=== PATIENT | male | born 1990 | race Caucasian/White ===

== ENCOUNTER 2016-04-30 10:40 | Emergency (ER) | payer BC, MEDICAID ==
[2016-04-30 10:45] VITALS: BP 109/74
--- NOTE | 2016-04-30 10:48 | ER Document Report ---
ED Medical Screen (RME) - General Stated Complaint: BACK PAIN Time seen by provider: 10:46 Notes: Patient states he rolled down the stairs several days ago while playing with his son. Complains of continued back pain to right side. Previous history of back problems in the past. Patient complains of congestion, and one also like to be seen for that today. No fever. I have greeted and performed a rapid initial assessment of this patient. A comprehensive ED assessment and evaluation of the patient, analysis of test results and completion of the medical decision making process will be conducted by additional ED providers. TRAVEL OUTSIDE OF THE [place] IN LAST 30 DAYS: No - Related Data Allergies/Adverse Reactions: No Known Allergies Allergy (Verified 04/30/16 10:46) Past Medical History Skin Medical History: Reports Hx MRSA - unsure if he was positive for MRSA in the past Past Surgical History: Reports: Hx Tonsillectomy - Immunizations Immunizations up to date: No Hx Diphtheria, Pertussis, Tetanus Vaccination: Yes Physical Exam - Vital signs Vitals: Temp Pulse Resp BP Pulse Ox 97.9 F 95 16 109/74 100 04/30/16 10:44 04/30/16 10:44 04/30/16 10:44 04/30/16 10:44 04/30/16 10:44 - General General appearance: Appears well, Alert In distress: None Notes: Patient ambulates to triage without difficulty. Course - Vital Signs Vital signs: Temp Pulse Resp BP Pulse Ox 97.9 F 95 16 109/74 100 04/30/16 10:44 04/30/16 10:44 04/30/16 10:44 04/30/16 10:44 04/30/16 10:44
[2016-04-30] MEDS ORDERED: LIDOCAINE 5% (700 MG) TRANSDERMAL ADH..PATCH TP ONE (11:02)
--- NOTE | 2016-04-30 11:02 | ER Document Report ---
ED General - General Chief Complaint: Back Pain Stated Complaint: BACK PAIN TRAVEL OUTSIDE OF THE [place] IN LAST 30 DAYS: No - HPI Patient complains to provider of: back pain congestion Notes: Patient has a history smoking continues to smoke congestion for a week back pain for greater than a week after falling discussed with stairs. Patient states pain is no better coming to the ER further evaluation. Patient denies any numbness tingling difficulty ambulating denies bowel or bladder incontinence. Denies fevers chills - Related Data Allergies/Adverse Reactions: No Known Allergies Allergy (Verified 04/30/16 10:46) Past Medical History - Social History Smoking Status: Never Smoker Chew tobacco use (# tins/day): No Frequency of alcohol use: None Drug Abuse: None Family History: Reviewed & Not Pertinent Patient has suicidal ideation: No Patient has homicidal ideation: No Renal/ Medical History: Denies: Hx Peritoneal Dialysis Skin Medical History: Reports Hx MRSA - unsure if he was positive for MRSA in the past Past Surgical History: Reports: Hx Tonsillectomy - Immunizations Immunizations up to date: No Hx Diphtheria, Pertussis, Tetanus Vaccination: Yes Review of Systems - Review of Systems Constitutional: No symptoms reported EENT: No symptoms reported Cardiovascular: No symptoms reported Respiratory: Other - Cough congestion Gastrointestinal: No symptoms reported Genitourinary: No symptoms reported Male Genitourinary: No symptoms reported Musculoskeletal: Back pain Skin: No symptoms reported Hematologic/Lymphatic: No symptoms reported Neurological/Psychological: No symptoms reported -: Yes All other systems reviewed and negative Physical Exam - Vital signs Vitals: Temp Pulse Resp BP Pulse Ox 97.9 F 95 16 109/74 100 04/30/16 10:44 04/30/16 10:44 04/30/16 10:44 04/30/16 10:44 04/30/16 10:44 Interpretation: Normal - General General appearance: Appears well, Alert - HEENT Head: Normocephalic, Atraumatic Eyes: Normal Pupils: PERRL - Respiratory Respiratory status: No respiratory distress Chest status: Nontender Breath sounds: Normal Chest palpation: Normal - Cardiovascular Rhythm: Regular Heart sounds: Normal auscultation Murmur: No - Abdominal Inspection: Normal Distension: No distension Bowel sounds: Normal Tenderness: Nontender Organomegaly: No organomegaly - Back Back: Normal, Tender - Patient with right-sided back pain paraspinal no signs of bruises no erythema - Extremities General upper extremity: Normal inspection, Nontender, Normal color, Normal ROM , Normal temperature General lower extremity: Normal inspection, Nontender, Normal color, Normal ROM , Normal temperature, Normal weight bearing. No: Benjamin's sign - Neurological Neuro grossly intact: Yes Cognition: Normal Orientation: AAOx4 Wanda Coma Scale Eye Opening: Spontaneous [place]anda Coma Scale Verbal: Oriented [place] Coma Scale Motor: Obeys Commands [place] Coma Scale Total: 15 Speech: Normal Motor strength normal: LUE, RUE, LLE, RLE Sensory: Normal - Psychological Associated symptoms: Normal affect, Normal mood - Skin Skin Temperature: Warm Skin Moisture: Dry Skin Color: Normal Course - Re-evaluation Re-evalutation: 04/30/16 15:31 The patient presents with low back pain without signs of spinal cord compression , cauda equina syndrome, infection, aneurysm, or other serious etiology. The patient is neurologically intact. Given the extremely low risk of these diagnoses further testing and evaluation for these possibilities does not appear to be indicated at this time. The patient has been instructed to return if the symptoms worsen or change in any way. .. - Vital Signs Vital signs: Temp Pulse Resp BP Pulse Ox 97.9 F 95 16 109/74 100 04/30/16 10:44 04/30/16 10:44 04/30/16 10:44 04/30/16 10:44 04/30/16 10:44 Discharge - Discharge Clinical Impression: congestion Back pain Qualifiers: Back pain location: low back pain Chronicity: unspecified Back pain laterality : right Sciatica presence: without sciatica Qualified Code(s): M54.5 - Low back pain Condition: Good Disposition: HOME, SELF-CARE Instructions: Ice Packs ([facility]), Low Back Pain ([facility]), Viral Syndrome ([facility]) Additional Instructions: Take medication as prescribed. If you received good pain relief with Lidoderm patch and made ask her pharmacist about [id number] lidocaine gel for patches Please stop smoking as that this will worsen your congestion. Drink plenty of water to stay hydrated Prescriptions: Ketorolac Tromethamine [Toradol 10 mg Tablet] 10 mg PO Q6HP PRN #20 tablet PRN Reason: Guaifenesin [Mucinex] 1,200 mg PO BID #30 tbmp.12hr Forms: Smoking Cessation Education, Return to Work Referrals: MAYRA NAVAS MD [ACTIVE STAFF] - Follow up as needed MELANIA PASCUAL MD [NO LOCAL MD] - Follow up as needed
== END 2016-04-30 11:23 | disposition home or self-care (01) ==
LOC: ER 10:40
DX: M54.5 Low back pain (principal); R09.81 Nasal congestion; M54.9 Dorsalgia, unspecified; W19.XXXA Unspecified fall, initial encounter
CPT/HCPCS: 99283

== ENCOUNTER 2016-05-16 17:45 | Emergency (ER) | payer BC ==
--- NOTE | 2016-05-16 17:59 | ER Document Report ---
ED Medical Screen (RME) - General Stated Complaint: FLU LIKE SYPMTOMS Notes: Patient admits to emesis, diarrhea as well as bilateral flank pain that started last evening. 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 Admits to decreased urine output. Denies any fevers. I have greeted and performed a rapid initial assessment of this patient. A comprehensive ED assessment and evaluation of the patient, analysis of test results and completion of the medical decision making process will be conducted by additional ED providers. TRAVEL OUTSIDE OF THE [place] IN LAST 30 DAYS: No - Related Data Allergies/Adverse Reactions: No Known Allergies Allergy (Verified 05/16/16 17:57) Past Medical History Renal/ Medical History: Denies: Hx Peritoneal Dialysis Skin Medical History: Reports Hx MRSA - unsure if he was positive for MRSA in the past Past Surgical History: Reports: Hx Tonsillectomy - Immunizations Immunizations up to date: No Hx Diphtheria, Pertussis, Tetanus Vaccination: Yes
[2016-05-16] MEDS ORDERED: ONDANSETRON 4 MG TAB.RAPDIS PO ONE (18:00)
[2016-05-16 18:56] LABS: ABSOLUTE LYMPHOCYTES (AUTO) 1.6 10^3/uL (0.5-4.7); ABSOLUTE MONOCYTES (AUTO) 0.6 10^3/uL (0.1-1.4); BASOPHILS % (AUTO) 0.4 % (0-2); EOSINOPHILS % (AUTO) 0.2 % (0-6); HEMATOCRIT 39.5 % (37.9-51.0); HEMOGLOBIN 13.4 g/dL (13.5-17.0); HGB HCT DIFFERENCE 0.7; LYMPHOCYTES % (AUTO) 15.9 % (13-45); MEAN CORPUSCULAR HEMOGLOBIN 29.3 pg (27.0-33.4); MEAN CORPUSCULAR HGB CONC 33.9 g/dL (32.0-36.0); MEAN CORPUSCULAR VOLUME 87 fl (80-97); MONOCYTES % (AUTO) 5.9 % (3-13); RED BLOOD COUNT 4.57 10^6/uL (4.35-5.55); RED CELL DISTRIBUTION WIDTH 13.8 % (11.5-14.0); SEGMENTED NEUTROPHILS % (AUTO) 77.6 % (42-78); WHITE BLOOD COUNT 10.3 10^3/uL (4.0-10.5)
[2016-05-16] MEDS ORDERED: NORMAL SALINE 1000 ML 2,000 ML IV ONE ×2 (19:10→20:55)
--- NOTE | 2016-05-16 19:10 | ER Document Report ---
ED General - General Chief Complaint: Flank Pain Stated Complaint: FLU LIKE SYPMTOMS Mode of Arrival: Ambulatory Information source: Patient TRAVEL OUTSIDE OF THE [place] IN LAST 30 DAYS: No - HPI Onset: Yesterday - PM Onset/Duration: Gradual Quality of pain: Achy Severity: Moderate Associated symptoms: Chills, Diarrhea, Fever, Nausea, Vomiting, Weakness Exacerbated by: Movement Relieved by: Denies Similar symptoms previously: Yes Recently seen / treated by doctor: No - Related Data Allergies/Adverse Reactions: No Known Allergies Allergy (Verified 05/16/16 17:57) Past Medical History - General Information source: Patient, Parent - Social History Smoking Status: Unknown if Ever Smoked Chew tobacco use (# tins/day): No Frequency of alcohol use: None Drug Abuse: None Lives with: Parents Family History: Reviewed & Not Pertinent Patient has suicidal ideation: No Patient has homicidal ideation: No - Past Medical History Cardiac Medical History: Reports: None Pulmonary Medical History: Reports: None EENT Medical History: Reports: None Neurological Medical History: Reports: None Endocrine Medical History: Reports: None Renal/ Medical History: Reports: Other - RENAL FAILURE DURING OVERDOSE ESCAPADE, ? RESOLVED. Denies: Hx Peritoneal Dialysis Malignancy Medical History: Reports None GI Medical History: Reports: None Musculoskeltal Medical History: Reports None Skin Medical History: Reports Hx MRSA - unsure if he was positive for MRSA in the past Psychiatric Medical History: Reports: None Past Surgical History: Reports: Hx Tonsillectomy - Immunizations Immunizations up to date: No Hx Diphtheria, Pertussis, Tetanus Vaccination: Yes Review of Systems - Review of Systems Constitutional: Chills, Fever, Weakness EENT: No symptoms reported Cardiovascular: No symptoms reported Respiratory: No symptoms reported Gastrointestinal: See HPI Genitourinary: Dysuria, Other - DECREASED UOP Musculoskeletal: Back pain - LOW BACK & FLANKS, BILAT. Skin: No symptoms reported Neurological/Psychological: No symptoms reported Physical Exam - Vital signs Vitals: Temp Pulse Resp BP Pulse Ox 98.4 F 100 22 H 134/74 H 98 05/16/16 17:59 05/16/16 17:59 05/16/16 17:59 05/16/16 17:59 05/16/16 17:59 Interpretation: Tachycardic, Tachypneic. No: Hypotensive, Febrile - General General appearance: Appears well, Alert In distress: None - HEENT Head: Normocephalic Eyes: Normal Conjunctiva: Normal. No: Icteric Ears: Normal Nasal: Normal Mouth/Lips: Normal Mucous membranes: Dry Pharynx: Normal Neck: Normal, Supple - Respiratory Respiratory status: No respiratory distress Breath sounds: Normal - Cardiovascular Rhythm: Regular Heart sounds: Normal auscultation Murmur: No - Abdominal Inspection: Normal Distension: No distension Bowel sounds: Hypoactive Tenderness: Tender - MILD, GENERALIZED - Back Back: Normal, Tender - LOWER PARASPINOUS & FLANKS, CVA tenderness - BILAT. - Extremities General upper extremity: Normal inspection General lower extremity: Normal inspection - Neurological Neuro grossly intact: Yes Cognition: Normal Orientation: AAOx4 - Psychological Associated symptoms: Normal affect, Normal mood - Skin Skin Temperature: Warm Skin Moisture: Dry Skin Color: Normal Skin Turgor: Loose Course - Re-evaluation Re-evalutation: 05/16/16 22:30 Patient appears much more comfortable. He does admit, somewhat reluctantly, that he's feeling better. He is still complaining of pain. He is mobile and changes positions on the stretcher with minimal apparent pain. Oral mucosa is moist. Remainder of exam is unchanged. Results of laboratory studies were reviewed in detail with patient and with parent. He is stable for discharge to home and outpatient follow-up when necessary. - Vital Signs Vital signs: Temp Pulse Resp BP Pulse Ox 98 F 75 16 99/56 L 97 05/16/16 21:52 05/16/16 21:52 05/16/16 21:52 05/16/16 21:52 05/16/16 21:52 - Laboratory Result Diagrams: 05/16/16 18:46 05/16/16 18:46 Laboratory results interpreted by me: 05/16/16 05/16/16 05/16/16 18:46 18:46 20:37 Hgb 13.4 L Sodium 147.0 H Calcium 10.8 H Albumin 5.2 H Urine Protein 100 H Urine Ketones 20 H Urine Bilirubin MODERATE H Urine Ascorbic Acid 20 H Discharge - Discharge Clinical Impression: Viral illness, Dehydration Disposition: HOME, SELF-CARE Instructions: Viral Syndrome ([facility]), Acetaminophen, Dehydration ([facility]), Intravenous (IV) Fluids ([facility]), Oral Narcotic Medication ([facility]), Antinausea Medication ([facility]) Additional Instructions: REST, DRINK PLENTY OF FLUIDS. YOU SHOULD DRINK AT LEAST ONE GALLON OF WATER DURING EVERY 24-HOUR DAY UNTIL YOU HAVE TOTALLY RECOVERED. YOU MAY TAKE ZOFRAN FOR NAUSEA CONTROL IF NEEDED. YOU MAY TAKE TYLENOL FOR PAIN CONTROL, OR NORCO IF NEEDED FOR MORE SEVERE PAIN. FOLLOW UP WITH YOUR PRIMARY CARE PROVIDER OR RETURN TO E.R. IF YOU BEGIN GETTING WORSE, ANY TIME. Referrals: SLOANE RICARDO, [facility] [Primary Care Provider] - Follow up as needed
[2016-05-16 19:11] LABS: ALANINE AMINOTRANSFERASE 27 U/L (21-72); ALBUMIN 5.2 g/dL (3.5-5.0); ALKALINE PHOSPHATASE 47 U/L (38-126); ANION GAP 16 (5-19); ASPARTATE AMINO TRANSFERASE 22 U/L (17-59); BILIRUBIN,TOTAL 0.7 mg/dL (0.2-1.3); BLOOD UREA NITROGEN 15 mg/dL (7-20); CALCIUM 10.8 mg/dL (8.4-10.2); CARBON DIOXIDE 27 mmol/L (22-30); CHLORIDE 104 mmol/L (98-107); CREATININE RESULT 0.73 mg/dL (0.52-1.25); GLUCOSE 103 mg/dL (75-110); POTASSIUM 3.9 mmol/L (3.6-5.0); TOTAL PROTEIN 8.1 g/dL (6.3-8.2)
[2016-05-16] MEDS ORDERED: KETOROLAC TROMETHAMINE INJ/PF 30 MG/1 ML SDV IV ONE (19:15)
[2016-05-16] MEDS ORDERED: HYDROMORPHONE HCL INJ/PF 2 MG/ML AMPULE IV ONE ×2 (20:55→22:19)
[2016-05-16 21:31] LABS: APPEARANCE,URINE SLIGHTLY-CLOUDY; BILIRUBIN,URINE MODERATE (NEGATIVE); GLUCOSE, URINE NEGATIVE (NEGATIVE); KETONES,URINE 20 mg/dL (NEGATIVE); LEUKOCYTE ESTERASE,URINE NEGATIVE (NEGATIVE); NITRITE,URINE NEGATIVE (NEGATIVE); PROTEIN,URINE 100 mg/dL (NEGATIVE); URINE SPECIFIC GRAVITY 1.041; UROBILINOGEN,URINE NEGATIVE mg/dL (<2.0)
[2016-05-16] MEDS ORDERED: HYDROCODONE/ACETAMINOPHEN 5-325 MG 6 TAB/DSPK PO PRN (22:29)
[2016-05-16] MEDS ORDERED: ONDANSETRON ODT 4 MG TAB (6 TAB/DSPK) PO PRN (22:29)
[2016-05-17 00:11] VITALS: BP 105/52
== END 2016-05-16 23:43 | disposition home or self-care (01) ==
LOC: ER 17:45
DX: B34.9 Viral infection, unspecified (principal); E86.0 Dehydration; R50.9 Fever, unspecified; R19.7 Diarrhea, unspecified; R11.2 Nausea with vomiting, unspecified; R53.1 Weakness; R30.0 Dysuria; R00.0 Tachycardia, unspecified; R06.82 Tachypnea, not elsewhere classified; R10.817 Generalized abdominal tenderness
CPT/HCPCS: 96376; 99283; 96361; 51701; 96374; 96375; 36415; 82550; 85025; 80053; 81001; S0119; J1885; J1170; J7030

== ENCOUNTER 2016-06-14 13:19 | Emergency (ER) | payer BC, MEDICAID ==
--- NOTE | 2016-06-14 13:55 | ER Document Report ---
ED Medical Screen (RME) - General Chief Complaint: Flank Pain Stated Complaint: FLANK PAIN, LOW BACK PAIN Notes: This 25-year-old male patient comes emergency room complaining of bilateral kidney pain for 2 weeks. He has had this problems off and on for 3 years. He reports he was told he was close to going on dialysis when he was here for multiple drug overdose a few years ago. He states he has been here several times" they say it's dehydration". He also reports they always give him fluids and Toradol. He states that Toradol does not help and he does not want to receive that. He is also reporting that he is now having pain across his lower abdomen when he urinates and his urine is clear. Brief exam shows tenderness in the lower lumbar back muscles on palpation. He was seen here 1 month ago with similar complaints and similar findings. I have greeted and performed a rapid initial assessment of this patient. A comprehensive ED assessment and evaluation of the patient, analysis of test results and completion of the medical decision making process will be conducted by additional ED providers. TRAVEL OUTSIDE OF THE [place] IN LAST 30 DAYS: No - Related Data Allergies/Adverse Reactions: acetaminophen [From Tylenol-Codeine #3] Allergy (Verified 06/14/16 13:30) Hives codeine [From Tylenol-Codeine #3] Allergy (Verified 06/14/16 13:30) Hives tramadol Adverse Reaction (Verified 06/14/16 13:30) Vomiting Past Medical History Renal/ Medical History: Denies: Hx Peritoneal Dialysis Skin Medical History: Reports Hx MRSA - unsure if he was positive for MRSA in the past Past Surgical History: Reports: Hx Tonsillectomy - Immunizations Immunizations up to date: No Hx Diphtheria, Pertussis, Tetanus Vaccination: Yes Physical Exam - Vital signs Vitals: Temp Pulse Resp BP Pulse Ox 98.5 F 108 H 16 133/77 H 100 06/14/16 13:30 06/14/16 13:30 06/14/16 13:30 06/14/16 13:30 06/14/16 13:30 Course - Vital Signs Vital signs: Temp Pulse Resp BP Pulse Ox 98.5 F 108 H 16 133/77 H 100 06/14/16 13:30 06/14/16 13:30 06/14/16 13:30 06/14/16 13:30 06/14/16 13:30
[2016-06-14 14:17] LABS: ABSOLUTE EOSINOPHILS # (AUTO) 0.2 10^3/uL (0.0-0.6); ABSOLUTE LYMPHOCYTES (AUTO) 1.6 10^3/uL (0.5-4.7); ABSOLUTE MONOCYTES (AUTO) 0.5 10^3/uL (0.1-1.4); ABSOLUTE NEUT (AUTO) 6.1 10^3/uL (1.7-8.2); APPEARANCE,URINE CLEAR; BASOPHILS % (AUTO) 0.5 % (0-2); BILIRUBIN,URINE NEGATIVE (NEGATIVE); GLUCOSE, URINE NEGATIVE (NEGATIVE); HEMATOCRIT 39.1 % (37.9-51.0); HEMOGLOBIN 13.6 g/dL (13.5-17.0); HGB HCT DIFFERENCE 1.7; KETONES,URINE NEGATIVE (NEGATIVE); LEUKOCYTE ESTERASE,URINE NEGATIVE (NEGATIVE); LYMPHOCYTES % (AUTO) 19.4 % (13-45); MEAN CORPUSCULAR HGB CONC 34.8 g/dL (32.0-36.0); MEAN CORPUSCULAR VOLUME 86 fl (80-97); MONOCYTES % (AUTO) 6.2 % (3-13); NITRITE,URINE NEGATIVE (NEGATIVE); PROTEIN,URINE NEGATIVE (NEGATIVE); RED BLOOD COUNT 4.53 10^6/uL (4.35-5.55); RED CELL DISTRIBUTION WIDTH 14.5 % (11.5-14.0); SEGMENTED NEUTROPHILS % (AUTO) 71.9 % (42-78); URINE SPECIFIC GRAVITY 1.002; UROBILINOGEN,URINE NEGATIVE mg/dL (<2.0); WHITE BLOOD COUNT 8.5 10^3/uL (4.0-10.5)
[2016-06-14 14:37] LABS: URINE BARBITURATES SCREEN NEGATIVE; URINE METHADONE SCREEN NEGATIVE; URINE OPIATES LOW UNCONFIRMED POSITIVE; URINE PHENCYCLIDINE SCREEN NEGATIVE
[2016-06-14 14:41] LABS: ALANINE AMINOTRANSFERASE 24 U/L (21-72); ALBUMIN 5.1 g/dL (3.5-5.0); ALKALINE PHOSPHATASE 44 U/L (38-126); ANION GAP 15 (5-19); ASPARTATE AMINO TRANSFERASE 24 U/L (17-59); BILIRUBIN,DIRECT 0.3 mg/dL (0.0-0.4); BILIRUBIN,TOTAL 0.6 mg/dL (0.2-1.3); BLOOD UREA NITROGEN 16 mg/dL (7-20); CALCIUM 10.7 mg/dL (8.4-10.2); CARBON DIOXIDE 27 mmol/L (22-30); CHLORIDE 103 mmol/L (98-107); CREATININE RESULT 0.67 mg/dL (0.52-1.25); GLUCOSE 94 mg/dL (75-110); POTASSIUM 4.6 mmol/L (3.6-5.0); SODIUM 144.8 mmol/L (137-145); TOTAL PROTEIN 7.8 g/dL (6.3-8.2)
--- NOTE | 2016-06-14 17:01 | ER Document Report ---
ED GI/ - General Chief Complaint: Flank Pain Stated Complaint: FLANK PAIN, LOW BACK PAIN Time seen by provider: 16:55 Mode of Arrival: Ambulatory Information source: Patient Notes: 25-year-old male presents to ED for severe pain in bilateral flank. For 2 weeks. He states is actually been on and off for 4-5 years. He states he was told at one time that he was close to gone on dialysis because he was here for multiple drug overdoses a few years ago. He states he has been here several times in the continually telling him he is dehydrated and he knows he is not dehydrated. He states he also has pain when he urinates across the stomach. He states he's had this pain multiple times in the past also TRAVEL OUTSIDE OF THE [place] IN LAST 30 DAYS: No - HPI Patient complains to provider of: Flank pain Onset: Other - 4-5 years worse the last 2 days Timing/Duration: Intermittent Quality of pain: Sharp Severity at maximum: Severe Severity in ED: Moderate Pain Level: 3 Location: Left flank, Right flank Associated symptoms: denies: Chills, Fever, Hematuria, Nausea, Urinary hesitancy , Urinary frequency, Urinary retention, Urinary urgency Exacerbated by: Movement, Walking Relieved by: Denies Similar symptoms previously: Yes Recently seen / treated by doctor: No - Related Data Allergies/Adverse Reactions: acetaminophen [From Tylenol-Codeine #3] Allergy (Verified 06/14/16 13:30) Hives codeine [From Tylenol-Codeine #3] Allergy (Verified 06/14/16 13:30) Hives tramadol Adverse Reaction (Verified 06/14/16 13:30) Vomiting Past Medical History - General Information source: Patient - Social History Smoking Status: Current Every Day Smoker Cigarette use (# per day): Yes - half a pack a day Chew tobacco use (# tins/day): No Smoking Education Provided: Yes - less than 2 minutes Frequency of alcohol use: None Drug Abuse: None Occupation: none Lives with: Family Family History: Reviewed & Not Pertinent Patient has suicidal ideation: No Patient has homicidal ideation: No - Past Medical History Cardiac Medical History: Reports: None Pulmonary Medical History: Reports: None EENT Medical History: Reports: None Neurological Medical History: Reports: None Endocrine Medical History: Reports: None Renal/ Medical History: Reports: None Malignancy Medical History: Reports None GI Medical History: Reports: None Musculoskeltal Medical History: Reports Hx Musculoskeletal Deformity, Reports Hx Musculoskeletal Trauma Skin Medical History: Reports Hx MRSA - unsure if he was positive for MRSA in the past Psychiatric Medical History: Reports: None Traumatic Medical History: Reports: None Infectious Medical History: Reports: None Past Surgical History: Reports: Hx Adenoidectomy, Hx Oral Surgery - [place] teeth , Hx Tonsillectomy - Immunizations Immunizations up to date: No Hx Diphtheria, Pertussis, Tetanus Vaccination: Yes Review of Systems - Review of Systems Constitutional: No symptoms reported EENT: No symptoms reported Cardiovascular: No symptoms reported Respiratory: No symptoms reported Gastrointestinal: No symptoms reported Genitourinary: Flank pain Male Genitourinary: No symptoms reported Musculoskeletal: No symptoms reported Skin: No symptoms reported Hematologic/Lymphatic: No symptoms reported Neurological/Psychological: No symptoms reported -: Yes All other systems reviewed and negative Physical Exam - Vital signs Vitals: Temp Pulse Resp BP Pulse Ox 98.5 F 108 H 16 133/77 H 100 06/14/16 13:30 06/14/16 13:30 06/14/16 13:30 06/14/16 13:30 06/14/16 13:30 Interpretation: Normal - General General appearance: Appears well, Alert - HEENT Head: Normocephalic, Atraumatic Eyes: Normal Pupils: PERRL - Respiratory Respiratory status: No respiratory distress Chest status: Nontender Breath sounds: Normal Chest palpation: Normal - Cardiovascular Rhythm: Regular Heart sounds: Normal auscultation Murmur: No - Abdominal Inspection: Normal Distension: No distension Bowel sounds: Normal Tenderness: Nontender Organomegaly: No organomegaly - Back Back: Normal, Tender - Bilateral lower back tenderness. No: Nontender, Deformity/step-off, CVA tenderness, Vertebra tenderness, Scars, Scoliosis, Wounds - Extremities General upper extremity: Normal inspection, Nontender, Normal color, Normal ROM , Normal temperature General lower extremity: Normal inspection, Nontender, Normal color, Normal ROM , Normal temperature, Normal weight bearing. No: Benjamin's sign - Neurological Neuro grossly intact: Yes Cognition: Normal Orientation: AAOx4 [place] Coma Scale Eye Opening: Spontaneous [place] Coma Scale Verbal: Oriented [place] Coma Scale Motor: Obeys Commands [place] Coma Scale Total: 15 Speech: Normal Motor strength normal: LUE, RUE, LLE, RLE Sensory: Normal - Psychological Associated symptoms: Normal affect, Normal mood - Skin Skin Temperature: Warm Skin Moisture: Dry Skin Color: Normal Course - Re-evaluation Re-evalutation: 06/14/16 17:06 Discussed labs with patient and written reports given to patient to follow-up with his primary doctor. Discussed with patient fact that we do not treat chronic pain in this pain he is having in his flank area he has been having off and on for 4-5 years. Reviewed alternate methods for pain control such as ice and heat, ibuprofen, and exercise. Patient was given name and number for [facility] and other local MDs. He states that his present doctor will not refer him to pain management. - Vital Signs Vital signs: Temp Pulse Resp BP Pulse Ox 98.2 F 100 18 128/88 H 100 06/14/16 17:29 06/14/16 17:29 06/14/16 17:29 06/14/16 17:29 06/14/16 17:29 - Laboratory Result Diagrams: 06/14/16 13:55 06/14/16 13:55 Laboratory results interpreted by me: 06/14/16 06/14/16 13:55 13:55 RDW 14.5 H Calcium 10.7 H Albumin 5.1 H Discharge - Discharge Clinical Impression: Flank pain Condition: Stable Disposition: HOME, SELF-CARE Instructions: Use of [id number] Ibuprofen ([facility]), Family Physicians / Practices Additional Instructions: Flank Pain We weren't able to prove an exact cause for your flank pain. Pain in the flank can be caused by a muscle strain or spasm. Sometimes a kidney stone causes pain, but can't be found on our tests. Infection in the kidney should be evident on a urine test. Early shingles can occasionally cause flank pain, without the rash that proves the diagnosis. On rare occasions, disease of the pancreas, aorta, spleen, or colon can create pain in the flank. At this time, there's no evidence of a dangerous condition, and it seems safe for you to be at home. If the pain goes away and does not come back, no further testing will be needed. If pain persists, or becomes more severe, we may need to repeat some tests or order additional new testing. Blood in the urine, urgency to urinate frequently, and pain that radiates to the groin can indicate a kidney stone. Fever may mean that the pain is due to infection, either of the kidney or the colon (diverticulitis). If your pain is early shingles, you should develop an eruption of blisters in the painful area within a few days. Call the doctor or return if you have pain that is spreading or becoming more severe, pain that does not resolve with time, fever, or any other new symptoms. Chronic Pain Control Stress, inactivity, and depression make pain more severe regardless of the cause of the pain. Stress and poor physical condition can cause pain such as headaches and backache. Relaxation: Rest in a quiet place with your eyes closed for 20 minutes twice daily. Concentrate on a pleasant image, or simply "feel" your breathing. Clear your mind. Stress management: Deal with your "stressors." Either take action, or eliminate the stressor from your life. Don't let things hang over you. Accept those things you can't change. Nutrition: Eat small, balanced meals -- don't skip, don't overeat. Meals should be high-carbohydrate, low-sugar, low-fat. Exercise: Exercise helps painful conditions and eases stress. Get 30 minutes of moderate exercise, five days a week. Do an activity that does not flare your pain. Precautions: Pain which continues to disrupt daily activities, or which changes in nature, requires a medical evaluation. Pain Clinic referral is available. We do not manage chronic pain in the Emergency Department. We will try to appropriately help you through an acute flare of your chronic painful condition , but for on-going chronic pain that does not improve, you will need to see your private doctor or pain coordinator. We do not provide repeated medication management of chronic painful conditions. If you wish, we can provide the name of local pain management physicians. ICE PACKS: Apply ice packs frequently against the painful area. Many different schedules are recommended, such as "20 minutes on, 20 minutes off" or "one hour ice, two hours rest." If you need to work, you may need to go longer between ice treatments. You should plan to have the area ice packed AT LEAST one fourth of the time. The ice should be applied over the wrap, tape, or splint, or over a layer of cloth -- not directly against the skin. Some ice bags have a built-in cloth and can be put directly on the skin. WARM PACKS: After approximately two days, apply gentle heat (such as a heating pad or hot water bottle) for about 20 to 30 minutes about every two hours -- at least four times daily. Warmth and elevation will help you make a more rapid recovery , and will ease the pain considerably. Do not use HOT heat, and never apply heat for longer than 30 minutes. The continuous heat can invisibly damage skin and muscles -- even when no burn is seen on the surface. Damaged muscles can make you MORE sore. FOLLOW-UP CARE: If you have been referred to a physician for follow-up care, call the physician s office for an appointment as you were instructed or within the next two days. If you experience worsening or a significant change in your symptoms, notify the physician immediately or return to the Emergency Department at any time for re-evaluation. Forms: Smoking Cessation Education, Elevated Blood Pressure Referrals: [facility] [Provider Group] - Follow up as needed
[2016-06-14 17:30] VITALS: BP 128/88
== END 2016-06-14 17:29 | disposition home or self-care (01) ==
LOC: ER 13:19
DX: R10.9 Unspecified abdominal pain (principal); M54.5 Low back pain; F17.210 Nicotine dependence, cigarettes, uncomplicated; Z88.6 Allergy status to analgesic agent; Z86.14 Personal history of Methicillin resistant Staphylococcus aureus infection
CPT/HCPCS: 36415; 80053; 80307; 81001; 85025; 99284

== ENCOUNTER 2016-11-08 17:11 | Emergency (ER) | payer BC, MEDICAID ==
[2016-11-08] MEDS ORDERED: OXYCODONE-ACETAMINOPHEN 5-325 MG TABLET PO ONE (18:03)
[2016-11-08] MEDS ORDERED: ONDANSETRON 4 MG TAB.RAPDIS SL ONE (18:03)
--- NOTE | 2016-11-08 18:05 | ER Document Report ---
ED Medical Screen (RME) - General Chief Complaint: Groin Pain Stated Complaint: GROIN PAIN Time Seen by Provider: 11/08/16 18:02 Mode of Arrival: Ambulatory Information source: Patient TRAVEL OUTSIDE OF THE [place] IN LAST 30 DAYS: No - HPI Patient complains to provider of: Right groin pain Notes: 11/08/16 18:04 Patient is a 26-year-old male presenting to the emergency room today complaining of pain in his right groin that started after lifting a bunch of heavy metal, patient reports that there is swelling in his right groin area that he believes to be a cyst, he reports some nausea but no vomiting, no fever , no diarrhea, he did have a bowel movement today and denies obstipation - Related Data Allergies/Adverse Reactions: acetaminophen [From Tylenol-Codeine #3] Allergy (Verified 11/08/16 17:30) Hives codeine [From Tylenol-Codeine #3] Allergy (Verified 11/08/16 17:30) Hives tramadol Adverse Reaction (Verified 11/08/16 17:30) Vomiting Past Medical History Renal/ Medical History: Denies: Hx Peritoneal Dialysis Musculoskeltal Medical History: Reports Hx Musculoskeletal Deformity, Reports Hx Musculoskeletal Trauma Skin Medical History: Reports Hx MRSA - unsure if he was positive for MRSA in the past Past Surgical History: Reports: Hx Adenoidectomy, Hx Oral Surgery - [place] teeth , Hx Tonsillectomy - Immunizations Immunizations up to date: No Hx Diphtheria, Pertussis, Tetanus Vaccination: Yes Physical Exam - Vital signs Vitals: Temp Pulse Resp BP Pulse Ox 98.7 F 96 18 148/86 H 98 11/08/16 17:29 11/08/16 17:29 11/08/16 17:29 11/08/16 17:29 11/08/16 17:29 Course - Vital Signs Vital signs: Temp Pulse Resp BP Pulse Ox 98.7 F 96 18 148/86 H 98 11/08/16 17:29 11/08/16 17:29 11/08/16 17:29 11/08/16 17:29 11/08/16 17:29
[2016-11-08 18:52] LABS: PROTHROMBIN TIME 12.5 SEC (11.4-15.4)
[2016-11-08 18:53] LABS: PARTIAL THROMBOPLASTIN TIME 29.9 SEC (23.5-35.8)
[2016-11-08 18:54] LABS: APPEARANCE,URINE CLEAR; BILIRUBIN,URINE NEGATIVE (NEGATIVE); GLUCOSE, URINE NEGATIVE (NEGATIVE); KETONES,URINE NEGATIVE (NEGATIVE); LEUKOCYTE ESTERASE,URINE NEGATIVE (NEGATIVE); NITRITE,URINE NEGATIVE (NEGATIVE); PROTEIN,URINE NEGATIVE (NEGATIVE); URINE SPECIFIC GRAVITY 1.011; UROBILINOGEN,URINE NEGATIVE mg/dL (<2.0)
[2016-11-08 18:55] LABS: ABSOLUTE BASOPHILS # (AUTO) 0.1 10^3/uL (0.0-0.2); ABSOLUTE EOSINOPHILS # (AUTO) 0.4 10^3/uL (0.0-0.6); ABSOLUTE LYMPHOCYTES (AUTO) 2.8 10^3/uL (0.5-4.7); ABSOLUTE MONOCYTES (AUTO) 0.5 10^3/uL (0.1-1.4); ABSOLUTE NEUT (AUTO) 4.5 10^3/uL (1.7-8.2); BASOPHILS % (AUTO) 0.7 % (0-2); EOSINOPHILS % (AUTO) 4.5 % (0-6); HEMATOCRIT 40.2 % (37.9-51.0); HEMOGLOBIN 13.6 g/dL (13.5-17.0); HGB HCT DIFFERENCE 0.6; LYMPHOCYTES % (AUTO) 34.1 % (13-45); MEAN CORPUSCULAR HEMOGLOBIN 30.3 pg (27.0-33.4); MEAN CORPUSCULAR HGB CONC 33.8 g/dL (32.0-36.0); MEAN CORPUSCULAR VOLUME 90 fl (80-97); MONOCYTES % (AUTO) 6.1 % (3-13); RED BLOOD COUNT 4.49 10^6/uL (4.35-5.55); RED CELL DISTRIBUTION WIDTH 13.9 % (11.5-14.0); SEGMENTED NEUTROPHILS % (AUTO) 54.6 % (42-78); WHITE BLOOD COUNT 8.2 10^3/uL (4.0-10.5)
[2016-11-08 19:08] LABS: ANION GAP 12 (5-19); BLOOD UREA NITROGEN 18 mg/dL (7-20); CALCIUM 10.1 mg/dL (8.4-10.2); CARBON DIOXIDE 27 mmol/L (22-30); CHLORIDE 102 mmol/L (98-107); CREATININE RESULT 0.84 mg/dL (0.52-1.25); GLUCOSE 85 mg/dL (75-110); POTASSIUM 4.5 mmol/L (3.6-5.0); SODIUM 141.2 mmol/L (137-145)
[2016-11-08] MEDS ORDERED: MORPHINE SULFATE 10 MG/ML INJ IM ONE (20:10)
--- NOTE | 2016-11-08 20:45 | ER Document Report ---
ED GI/ - General Chief Complaint: Groin Pain Stated Complaint: GROIN PAIN Time Seen by Provider: 11/08/16 18:02 Mode of Arrival: Ambulatory Information source: Patient Notes: Patient states that he was lifting metal 2 days ago and developed pain to right groin area. Patient complains of a tender lump to his right groin. Patient states pain radiates into his testicles. Patient complains of nausea but denies any vomiting or diarrhea. Patient denies any fever. Patient denies any , frequency, or penile discharge. TRAVEL OUTSIDE OF THE [place] IN LAST 30 DAYS: No - HPI Patient complains to provider of: Groin pain, Testicular pain. No: Dysuria Onset: Other - 2 days Timing/Duration: Persistent Quality of pain: Sharp Pain Level: 5 Location: Left testicle, Right testicle, Other - Right groin Associated symptoms: denies: Diarrhea, Dysuria, Erection problem, Nausea, Urinary hesitancy, Urinary frequency, Urinary retention, Urinary urgency, Vomiting Exacerbated by: Denies Relieved by: Denies Similar symptoms previously: No Recently seen / treated by doctor: No - Related Data Allergies/Adverse Reactions: acetaminophen [From Tylenol-Codeine #3] Allergy (Verified 11/08/16 17:30) Hives codeine [From Tylenol-Codeine #3] Allergy (Verified 11/08/16 17:30) Hives tramadol Adverse Reaction (Verified 11/08/16 17:30) Vomiting Past Medical History - General Information source: Patient - Social History Smoking Status: Current Every Day Smoker Chew tobacco use (# tins/day): No Frequency of alcohol use: None Drug Abuse: None Occupation: None Lives with: Family Family History: Reviewed & Not Pertinent Renal/ Medical History: Denies: Hx Peritoneal Dialysis Musculoskeltal Medical History: Reports Hx Musculoskeletal Deformity, Reports Hx Musculoskeletal Trauma Skin Medical History: Reports Hx MRSA - unsure if he was positive for MRSA in the past Past Surgical History: Reports: Hx Adenoidectomy, Hx Oral Surgery - [place] teeth , Hx Tonsillectomy - Immunizations Immunizations up to date: No Hx Diphtheria, Pertussis, Tetanus Vaccination: Yes Review of Systems - Review of Systems Constitutional: No symptoms reported. denies: Fever EENT: No symptoms reported Cardiovascular: No symptoms reported Respiratory: No symptoms reported. denies: Cough, Short of breath Gastrointestinal: Other - Pain to right groin. denies: Abdominal pain Genitourinary: No symptoms reported. denies: Dysuria Male Genitourinary: Testicular pain Musculoskeletal: No symptoms reported Skin: No symptoms reported Hematologic/Lymphatic: No symptoms reported Neurological/Psychological: No symptoms reported Physical Exam - Vital signs Vitals: Temp Pulse Resp BP Pulse Ox 98.7 F 96 18 148/86 H 98 11/08/16 17:29 11/08/16 17:29 11/08/16 17:29 11/08/16 17:29 11/08/16 17:29 - General General appearance: Appears well, Alert In distress: None - HEENT Head: Normocephalic Nasal: Normal Mouth/Lips: Normal Mucous membranes: Normal Neck: Normal, Supple. No: Lymphadenopathy - Respiratory Respiratory status: No respiratory distress Chest status: Nontender Breath sounds: Normal Chest palpation: Normal - Cardiovascular Rhythm: Regular Heart sounds: S1 appreciated, S2 appreciated Murmur: No - Abdominal Inspection: Normal Distension: No distension Bowel sounds: Normal Tenderness: Nontender Organomegaly: No organomegaly - Genitourinary Inspection: Normal Tenderness: Testicle tender - bilat testicular tenderness, Epididymis tender - bilat Cremasteric reflex: Normal Notes: pct [place] as standby. Pt with right inguinal lymph node tenderness, no concern for hernia - Back Back: Normal, Nontender. No: CVA tenderness - Extremities General upper extremity: Normal inspection, Normal ROM General lower extremity: Normal inspection, Normal ROM - Neurological Neuro grossly intact: Yes Cognition: Normal [place] Coma Scale Eye Opening: Spontaneous Wanda Coma Scale Verbal: Oriented [place] Coma Scale Motor: Obeys Commands [place] Coma Scale Total: 15 - Psychological Associated symptoms: Normal affect, Normal mood - Skin Skin Temperature: Warm Skin Moisture: Dry Skin Color: Normal Course - Re-evaluation Re-evalutation: 11/08/16 21:[address] Webb regarding patient presentation, diagnostic test results and ultrasound report reviewed. Advises treating patient with doxycycline and having patient follow up with urologist for any continued problems. Reviewed ultrasound report findings. Do not suspect abscess given absence of leukocytosis and normal skin color and temperature appearance overlying the area. Patient with a mobile 1 cm lesion that is consistent with lymph node. Patient advised that possible mass is also in the list of differentials. Patient advised to take anti-inflammatory medication as well as antibiotic and to follow-up with a urologist if he has any continued pain. Patient repeatedly asking for narcotic pain medication due to his testicular pain. 11/08/16 21:50 The patient has been informed that they may have pre-hypertension or hypertension based on a blood pressure reading in the emergency department. I recommend that patient call the primary care provider listed on their discharge instructions or a physician of their choice by this week to arrange follow-up for further evaluation of possible pre-hypertension or hypertension. - Vital Signs Vital signs: Temp Pulse Resp BP Pulse Ox 98.0 F 84 17 138/79 H 100 11/08/16 22:00 11/08/16 22:00 11/08/16 22:00 11/08/16 22:00 11/08/16 22:00 - Laboratory Result Diagrams: 11/08/16 18:10 11/08/16 18:10 Laboratory results interpreted by me: Labs- Entire Visit 11/08/16 11/08/16 11/08/16 18:10 18:10 18:10 WBC 8.2 RBC 4.49 Hgb 13.6 Hct 40.2 MCV 90 MCH 30.3 MCHC 33.8 RDW 13.9 Plt Count 252 Seg Neutrophils % 54.6 Lymphocytes % 34.1 Monocytes % 6.1 Eosinophils % 4.5 Basophils % 0.7 Absolute Neutrophils 4.5 Absolute Lymphocytes 2.8 Absolute Monocytes 0.5 Absolute Eosinophils 0.4 Absolute Basophils 0.1 PT 12.5 INR 0.87 APTT 29.9 Sodium 141.2 Potassium 4.5 Chloride 102 Carbon Dioxide 27 Anion Gap 12 BUN 18 Creatinine 0.84 Est GFR ( Amer) > 60 Est GFR (Non-Af Amer) > 60 Glucose 85 Calcium 10.1 Urine Color Urine Appearance Urine pH Ur Specific Dr[place] Urine Protein Urine Glucose (UA) Urine Ketones Urine Blood Urine Nitrite Urine Bilirubin Urine Urobilinogen Ur Leukocyte Esterase Urine WBC (Auto) Urine Ascorbic Acid 11/08/16 18:10 WBC RBC Hgb Hct MCV MCH MCHC RDW Plt Count Seg Neutrophils % Lymphocytes % Monocytes % Eosinophils % Basophils % Absolute Neutrophils Absolute Lymphocytes Absolute Monocytes Absolute Eosinophils Absolute Basophils PT INR APTT Sodium Potassium Chloride Carbon Dioxide Anion Gap BUN Creatinine Est GFR ( Amer) Est GFR (Non-Af Amer) Glucose Calcium Urine Color STRAW Urine Appearance CLEAR Urine pH 7.0 Ur Specific Dr[place]coll 1.011 Urine Protein NEGATIVE Urine Glucose (UA) NEGATIVE Urine Ketones NEGATIVE Urine Blood NEGATIVE Urine Nitrite NEGATIVE Urine Bilirubin NEGATIVE Urine Urobilinogen NEGATIVE Ur Leukocyte Esterase NEGATIVE Urine WBC (Auto) 0 Urine Ascorbic Acid NEGATIVE - Diagnostic Test Radiology reviewed: Reports reviewed Discharge - Discharge Clinical Impression: Scrotal pain, Varicocele, Lump in the groin, Elevated blood pressure reading Condition: Stable Disposition: HOME, SELF-CARE Instructions: Anti-Inflammatory Medication ([facility]), Doxycycline ([facility]), Growth or Mass, Pending Workup ([facility]) Additional Instructions: Return immediately for any new or worsening symptoms Followup with your primary care provider, call tomorrow to make a followup appointment Follow-up with urologist for further evaluation, call tomorrow for an appointment Prescriptions: Doxycycline Hyclate 100 mg PO BID #20 capsule Naproxen [Naprosyn 250 Nmg Tablet] 1 tab PO BID #14 tablet Oxycodone HCl/Acetaminophen [Percocet 5-325 mg Tablet] 1 tab PO ASDIR PRN #10 tablet PRN Reason: Forms: Elevated Blood Pressure Referrals: [facility] [Provider Group] - Follow up as needed [facility] [Provider Group] - Follow up as needed [facility] [Provider Group] - Follow up tomorrow
--- NOTE | 2016-11-08 21:23 | RADIOLOGY REPORT (SQ) ---
EXAM DESCRIPTION: U/S SCROTUM W/DOPPLER COMPLETED DATE/TIME: 11/08/2016 9:11 pm REASON FOR STUDY: scrotal pain COMPARISON: None. TECHNIQUE: Static and realtime yusuf scale imaging of the scrotum and testes. Selected color Doppler and spectral images recorded to document blood flow. LIMITATIONS: None. FINDINGS: RIGHT: TESTICLE: Normal size. Normal echotexture. Normal blood flow. No mass. EPIDIDYMIS: Normal. HYDROCELE OR VARICOCELE: No. HERNIA OR EXTRA-TESTICULAR MASS: No. OTHER: In the right groin a complex area is identified measuring 0.9 x 0.9 x 0.9 cm in diameters with the differential possibilities including an abnormal lymph node versus a small abscess collection ve rsus a soft tissue mass. LEFT: TESTICLE: Normal size. Normal echotexture. Normal blood flow. No mass. EPIDIDYMIS: Normal. HYDROCELE OR VARICOCELE: Varicocele is identified. HERNIA OR EXTRA-TESTICULAR MASS: No. OTHER: No other significant finding. IMPRESSION: Varicocele is identified on the left. NO EVIDENCE OF TESTICULAR MASS OR TORSION. Small complex area in the right groin as noted above. Other findings as noted above TECHNICAL DOCUMENTATION: JOB ID: [id number] [employer]- All Rights Reserved
[2016-11-08] MEDS ORDERED: DOXYCYCLINE HYCLATE 100 MG TABLET PO ONE (21:47)
[2016-11-08] MEDS ORDERED: IBUPROFEN 800 MG TABLET PO ONE (21:48)
[2016-11-08 22:14] LABS: CHLAM PCR NOT DETECTED (NOT DETECT)
[2016-11-08 22:58] VITALS: BP 138/79
== END 2016-11-08 22:00 | disposition home or self-care (01) ==
LOC: ER 17:11
DX: N50.82 Scrotal pain (principal); I86.1 Scrotal varices; R03.0 Elevated blood-pressure reading, without diagnosis of hypertension; R10.30 Lower abdominal pain, unspecified; R11.0 Nausea; F17.200 Nicotine dependence, unspecified, uncomplicated
CPT/HCPCS: 99284; 96372; 36415; 85025; 85610; 85730; 80048; 81001; 87491; 87591; 76870; 93976; S0119; J2270

== ENCOUNTER 2016-11-19 17:49 | Emergency (ER) | payer SELFPAY ==
[2016-11-19] MEDS ORDERED: OXYCODONE-ACETAMINOPHEN 5-325 MG TABLET PO ONE (18:08)
--- NOTE | 2016-11-19 18:18 | ER Document Report ---
ED Medical Screen (RME) - General Chief Complaint: Testicular Pain Stated Complaint: TESTICLE PAIN Time Seen by Provider: 11/19/16 18:01 Notes: This 26-year-old male patient comes emergency room complaining of severe bilateral testicular pain that started late this afternoon works. He states he was not doing any heavy lifting. He was seen here 11 days ago for testicular pain which she states is not as bad as today. At that time an ultrasound showed a left varicocele, and a right groin mass which was felt to be abscess versus lymph node versus soft tissue mass. He reports that right groin mass area is gone at this time. He was placed on Percocet, doxycycline, and an NSAID 11 days ago. I have greeted and performed a rapid initial assessment of this patient. A comprehensive ED assessment and evaluation of the patient, analysis of test results and completion of the medical decision making process will be conducted by additional ED providers. TRAVEL OUTSIDE OF THE [place] IN LAST 30 DAYS: No - Related Data Allergies/Adverse Reactions: acetaminophen [From Tylenol-Codeine #3] Allergy (Verified 11/19/16 17:52) Hives codeine [From Tylenol-Codeine #3] Allergy (Verified 11/19/16 17:52) Hives tramadol Adverse Reaction (Verified 11/19/16 17:52) Vomiting Past Medical History - Social History Chew tobacco use (# tins/day): No Frequency of alcohol use: None Drug Abuse: None Renal/ Medical History: Denies: Hx Peritoneal Dialysis Musculoskeltal Medical History: Reports Hx Musculoskeletal Deformity, Reports Hx Musculoskeletal Trauma Skin Medical History: Reports Hx MRSA - unsure if he was positive for MRSA in the past Past Surgical History: Reports: Hx Adenoidectomy, Hx Oral Surgery - [place] teeth , Hx Tonsillectomy - Immunizations Immunizations up to date: No Hx Diphtheria, Pertussis, Tetanus Vaccination: Yes Physical Exam - Vital signs Vitals: Temp Pulse Resp BP Pulse Ox 98.8 F 102 H 14 116/68 99 11/19/16 17:49 11/19/16 17:49 11/19/16 17:49 11/19/16 17:49 11/19/16 17:49 Course - Vital Signs Vital signs: Temp Pulse Resp BP Pulse Ox 98.8 F 102 H 14 116/68 99 11/19/16 17:49 11/19/16 17:49 11/19/16 17:49 11/19/16 17:49 11/19/16 17:49
--- NOTE | 2016-11-19 18:34 | ER Document Report ---
ED GI/ - General Chief Complaint: Testicular Pain Stated Complaint: TESTICLE PAIN Time Seen by Provider: 11/19/16 18:01 Mode of Arrival: Ambulatory Information source: Patient TRAVEL OUTSIDE OF THE [place] IN LAST 30 DAYS: No - HPI Patient complains to provider of: Testicular pain Onset: Just prior to arrival Timing/Duration: Sudden Quality of pain: Sharp, Stabbing Severity at maximum: Severe Severity in ED: Severe Location: Suprapubic, Right testicle Associated symptoms: Nausea. denies: Dysuria, Fever, Hematuria, Vomiting Exacerbated by: Denies Relieved by: Denies Similar symptoms previously: Yes Recently seen / treated by doctor: Yes Notes: 11/19/16 22:44 Patient is a 26-year-old male who presents to the emergency room complaining of testicular pain that started earlier today, he states it is in bilateral testicles, associated with nausea, no vomiting, has not urinated since his pain started but had no urinary symptoms prior to it, denies any penile discharge, reports having similar symptoms approximately 11 days ago when he was seen in the same day intermittently resolved and return this, he does report having symptoms like this when he was a child as well but denies ever having an evaluation by a physician for such, no abdominal or testicular surgeries in the past - Related Data Allergies/Adverse Reactions: acetaminophen [From Tylenol-Codeine #3] Allergy (Verified 11/19/16 17:52) Hives codeine [From Tylenol-Codeine #3] Allergy (Verified 11/19/16 17:52) Hives tramadol Adverse Reaction (Verified 11/19/16 17:52) Vomiting Past Medical History - General Information source: Patient - Social History Smoking Status: Current Every Day Smoker Chew tobacco use (# tins/day): No Frequency of alcohol use: None Drug Abuse: None Family History: Reviewed & Not Pertinent Renal/ Medical History: Denies: Hx Peritoneal Dialysis Musculoskeltal Medical History: Reports Hx Musculoskeletal Deformity, Reports Hx Musculoskeletal Trauma Skin Medical History: Reports Hx MRSA - unsure if he was positive for MRSA in the past Past Surgical History: Reports: Hx Adenoidectomy, Hx Oral Surgery - [place] teeth , Hx Tonsillectomy - Immunizations Immunizations up to date: No Hx Diphtheria, Pertussis, Tetanus Vaccination: Yes Review of Systems - Review of Systems Constitutional: No symptoms reported EENT: No symptoms reported Cardiovascular: No symptoms reported Respiratory: No symptoms reported Gastrointestinal: No symptoms reported Genitourinary: No symptoms reported Male Genitourinary: See HPI Musculoskeletal: No symptoms reported Skin: No symptoms reported Hematologic/Lymphatic: No symptoms reported Neurological/Psychological: No symptoms reported -: Yes All other systems reviewed and negative Physical Exam - Vital signs Vitals: Temp Pulse Resp BP Pulse Ox 98.8 F 102 H 14 116/68 99 11/19/16 17:49 11/19/16 17:49 11/19/16 17:49 11/19/16 17:49 11/19/16 17:49 Interpretation: Normal, Tachycardic - General General appearance: Appears well, Alert - HEENT Head: Normocephalic, Atraumatic Eyes: Normal Pupils: PERRL - Respiratory Respiratory status: No respiratory distress Chest status: Nontender Breath sounds: Normal Chest palpation: Normal - Cardiovascular Rhythm: Regular Heart sounds: Normal auscultation Murmur: No - Abdominal Inspection: Normal Distension: No distension Bowel sounds: Normal Tenderness: Nontender Organomegaly: No organomegaly - Genitourinary Inspection: Normal Tenderness: Testicle tender - Right testicle tenderness Cremasteric reflex: Normal Scrotum: Normal - Back Back: Normal, Nontender - Extremities General upper extremity: Normal inspection, Nontender, Normal color, Normal ROM , Normal temperature General lower extremity: Normal inspection, Nontender, Normal color, Normal ROM , Normal temperature, Normal weight bearing. No: Benjamin's sign - Neurological Neuro grossly intact: Yes Cognition: Normal Orientation: AAOx4 Wanda Coma Scale Eye Opening: Spontaneous Wanda Coma Scale Verbal: Oriented [place] Coma Scale Motor: Obeys Commands [place] Coma Scale Total: 15 Speech: Normal Motor strength normal: LUE, RUE, LLE, RLE Sensory: Normal - Psychological Associated symptoms: Normal affect, Normal mood - Skin Skin Temperature: Warm Skin Moisture: Dry Skin Color: Normal Course - Re-evaluation Re-evalutation: 11/19/16 22:24 Lab and imaging findings were discussed with patient at bedside which are unremarkable, physical exam findings are unremarkable as well except for patient 's reported pain on palpation of the right testicle, patient will be discharged with instructions for follow-up as well as a small amount of pain medication, advised to return if symptoms worsen, patient acknowledges understanding and agreement with this plan - Vital Signs Vital signs: Temp Pulse Resp BP Pulse Ox 98.8 F 102 H 14 116/68 99 11/19/16 17:49 11/19/16 17:49 11/19/16 17:49 11/19/16 17:49 11/19/16 17:49 - Laboratory Result Diagrams: 11/19/16 21:05 11/19/16 21:05 Laboratory results interpreted by me: 11/19/16 11/19/16 21:05 21:05 RDW 14.2 H Carbon Dioxide 31 H Albumin 5.2 H - Diagnostic Test Radiology reviewed: Image reviewed, Reports reviewed Discharge - Discharge Clinical Impression: Testicle pain Condition: Stable Disposition: HOME, SELF-CARE Instructions: Abdominal Pain ([facility]), Testicular Pain ([facility]) Additional Instructions: Follow up with your primary care provider in one to 2 days. Return to the emergency room immediately if symptoms worsen or any additional concerns. Prescriptions: Hydrocodone/Acetaminophen [Hydrocodon-Acetaminophen 5-325] 1 each PO Q6 #14 tablet
--- NOTE | 2016-11-19 19:33 | RADIOLOGY REPORT (SQ) ---
EXAM DESCRIPTION: U/S SCROTUM W/DOPPLER COMPLETED DATE/TIME: 11/19/2016 7:24 pm REASON FOR STUDY: bilat test pain COMPARISON: 11/08/2016 TECHNIQUE: Static and realtime yusuf scale imaging of the scrotum and testes. Selected color Doppler and spectral images recorded to document blood flow. LIMITATIONS: None. FINDINGS: RIGHT: TESTICLE: Normal size. Normal echotexture. Normal blood flow. No mass. EPIDIDYMIS: Normal. HYDROCELE OR VARICOCELE: No. HERNIA OR EXTRA-TESTICULAR MASS: No. OTHER: No other significant finding. LEFT: TESTICLE: Normal size. Normal echotexture. Normal blood flow. No mass. EPIDIDYMIS: Normal. HYDROCELE OR VARICOCELE: Stable varicocele HERNIA OR EXTRA-TESTICULAR MASS: No. OTHER: No other significant finding. IMPRESSION: NORMAL TESTES WITHOUT MASS OR TORSION. STABLE LEFT VARICOCELE. NO SIGNIFICANT CHANGE FROM PRIOR STUDY. TECHNICAL DOCUMENTATION: JOB ID: [id number] [employer]- All Rights Reserved
[2016-11-19 20:04] LABS: APPEARANCE,URINE CLEAR; BILIRUBIN,URINE NEGATIVE (NEGATIVE); GLUCOSE, URINE NEGATIVE (NEGATIVE); KETONES,URINE NEGATIVE (NEGATIVE); LEUKOCYTE ESTERASE,URINE NEGATIVE (NEGATIVE); NITRITE,URINE NEGATIVE (NEGATIVE); PROTEIN,URINE NEGATIVE (NEGATIVE); URINE SPECIFIC GRAVITY 1.006; UROBILINOGEN,URINE NEGATIVE mg/dL (<2.0)
--- NOTE | 2016-11-19 20:14 | RADIOLOGY REPORT (SQ) ---
EXAM DESCRIPTION: CT LTD RENAL STONE PROTOCOL ON COMPLETED DATE/TIME: 11/19/2016 8:05 pm REASON FOR STUDY: flank pain COMPARISON: 10/13/2015 TECHNIQUE: CT scan of the abdomen and pelvis performed without intravenous or oral contrast. Images reviewed with lung, soft tissue, and bone windows. Reconstructed coronal and sagittal MPR images revi ewed. All images stored on PACS. All CT scanners at this facility use dose modulation, iterative reconstruction, and/or weight based d osing when appropriate to reduce radiation dose to as low as reasonably achievable (ALARA). [facility]: Dose Right [facility]: CareDose [facility]: Dose Right [facility]: Teradose 4D [facility]: [employer] RADIATION DOSE: mGy. LIMITATIONS: None. FINDINGS: LOWER CHEST: No significant findings. No nodules or infiltrates. NON-CONTRASTED LIVER, SPLEEN, ADRENALS: Evaluation limited by lack of IV contrast. No identified sign ificant masses. PANCREAS: No masses. No peripancreatic inflammatory changes. GALLBLADDER: No identified stones by CT criteria. No inflammatory changes to suggest cholecystitis. RIGHT KIDNEY AND URETER: No suspicious masses. Assessment limited by lack of IV contrast. No signif icant calcifications. No hydronephrosis or hydroureter. LEFT KIDNEY AND URETER: No suspicious masses. Assessment limited by lack of IV contrast. No signifi cant calcifications. No hydronephrosis or hydroureter. AORTA AND RETROPERITONEUM: No aneurysm. No retroperitoneal masses or adenopathy. BOWEL AND PERITONEAL CAVITY: No obvious masses or inflammatory changes. No free fluid. APPENDIX: Normal. PELVIS, BLADDER, AND ABDOMINAL WALL:No abnormal masses. No free fluid. Bladder normal. BONES: No significant findings. OTHER: No other significant finding. IMPRESSION: NO SIGNIFICANT OR ACUTE PROCESS IN THE ABDOMEN OR PELVIS. COMMENT: Quality ID # [id number]: Final reports with documentation of one or more dose reduction techniques (e.g., Automated exposure control, adjustment of the mA and/or kV according to patient size, use of iterative reconstruction technique) TECHNICAL DOCUMENTATION: JOB ID: [id number]- All Rights Reserved
[2016-11-19] MEDS ORDERED: MORPHINE SULFATE 10 MG/ML INJ IM ONE (21:36)
[2016-11-19 22:07] LABS: ABSOLUTE BASOPHILS # (AUTO) 0.1 10^3/uL (0.0-0.2); ABSOLUTE EOSINOPHILS # (AUTO) 0.4 10^3/uL (0.0-0.6); ABSOLUTE MONOCYTES (AUTO) 0.5 10^3/uL (0.1-1.4); ABSOLUTE NEUT (AUTO) 3.9 10^3/uL (1.7-8.2); BASOPHILS % (AUTO) 0.8 % (0-2); EOSINOPHILS % (AUTO) 5.2 % (0-6); HEMATOCRIT 39.3 % (37.9-51.0); HEMOGLOBIN 13.7 g/dL (13.5-17.0); HGB HCT DIFFERENCE 1.8; LYMPHOCYTES % (AUTO) 38.4 % (13-45); MEAN CORPUSCULAR HEMOGLOBIN 30.6 pg (27.0-33.4); MEAN CORPUSCULAR HGB CONC 34.8 g/dL (32.0-36.0); MEAN CORPUSCULAR VOLUME 88 fl (80-97); MONOCYTES % (AUTO) 6.4 % (3-13); RED BLOOD COUNT 4.47 10^6/uL (4.35-5.55); RED CELL DISTRIBUTION WIDTH 14.2 % (11.5-14.0); SEGMENTED NEUTROPHILS % (AUTO) 49.2 % (42-78); WHITE BLOOD COUNT 7.9 10^3/uL (4.0-10.5)
[2016-11-19 22:19] LABS: ALANINE AMINOTRANSFERASE 24 U/L (21-72); ALBUMIN 5.2 g/dL (3.5-5.0); ALKALINE PHOSPHATASE 48 U/L (38-126); ANION GAP 12 (5-19); ASPARTATE AMINO TRANSFERASE 26 U/L (17-59); BILIRUBIN,DIRECT 0.3 mg/dL (0.0-0.4); BILIRUBIN,TOTAL 0.4 mg/dL (0.2-1.3); BLOOD UREA NITROGEN 14 mg/dL (7-20); CALCIUM 10.1 mg/dL (8.4-10.2); CARBON DIOXIDE 31 mmol/L (22-30); CHLORIDE 98 mmol/L (98-107); CREATININE RESULT 0.85 mg/dL (0.52-1.25); GLUCOSE 86 mg/dL (75-110); POTASSIUM 4.1 mmol/L (3.6-5.0); SODIUM 141.3 mmol/L (137-145); TOTAL PROTEIN 7.8 g/dL (6.3-8.2)
[2016-11-20 01:35] VITALS: BP 115/73
== END 2016-11-19 22:30 | disposition home or self-care (01) ==
LOC: ER 17:49
DX: N50.811 Right testicular pain (principal); N50.812 Left testicular pain; R11.0 Nausea; Z88.6 Allergy status to analgesic agent; Z88.5 Allergy status to narcotic agent; F17.200 Nicotine dependence, unspecified, uncomplicated
CPT/HCPCS: 99284; 96372; 36415; 85025; 80053; 81001; 76870; 93976; 76380; J2270

== ENCOUNTER 2016-11-30 11:26 | Emergency (ER) | payer SELFPAY ==
--- NOTE | 2016-11-30 12:00 | ER Document Report ---
ED Medical Screen (RME) - General Chief Complaint: Testicular Pain Stated Complaint: TESTICULAR PAIN Time Seen by Provider: 11/30/16 11:54 Notes: Patient is complaining of bilateral testicular pain for the past month. He is been seen here on 2 previous occasions and on both of those occasions had ultrasounds which showed a stable left varicocele but no other significant findings. He also had a CT scan on 1 of those 2 visits and it was normal. Patient says the pain goes away at times but then comes back and it is more severe today. The left side is worse than the right. He does not note any testicular swelling. 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 Denies any difficulty urinating. Denies any fever. Says he used to have some problems with testicular pain when he was child. Patient has no insurance or money to be able to see a urologist. TRAVEL OUTSIDE OF THE [place] IN LAST 30 DAYS: No - Related Data Allergies/Adverse Reactions: acetaminophen [From Tylenol-Codeine #3] Allergy (Verified 11/30/16 11:33) Hives codeine [From Tylenol-Codeine #3] Allergy (Verified 11/30/16 11:33) Hives tramadol Adverse Reaction (Verified 11/30/16 11:33) Vomiting Past Medical History - Social History Chew tobacco use (# tins/day): No Frequency of alcohol use: Rare Drug Abuse: None Renal/ Medical History: Denies: Hx Peritoneal Dialysis Musculoskeltal Medical History: Reports Hx Musculoskeletal Deformity, Reports Hx Musculoskeletal Trauma Skin Medical History: Reports Hx MRSA - unsure if he was positive for MRSA in the past Past Surgical History: Reports: Hx Adenoidectomy, Hx Oral Surgery - [place] teeth , Hx Tonsillectomy - Immunizations Immunizations up to date: No Hx Diphtheria, Pertussis, Tetanus Vaccination: Yes Physical Exam - Vital signs Vitals: Temp Pulse Resp BP Pulse Ox 98.6 F 84 18 97/62 L 100 11/30/16 11:37 11/30/16 11:37 11/30/16 11:37 11/30/16 11:37 11/30/16 11:37 Course - Vital Signs Vital signs: Temp Pulse Resp BP Pulse Ox 98.6 F 84 18 97/62 L 100 11/30/16 11:37 11/30/16 11:37 11/30/16 11:37 11/30/16 11:37 11/30/16 11:37
[2016-11-30 12:16] LABS: ABSOLUTE EOSINOPHILS # (AUTO) 0.2 10^3/uL (0.0-0.6); ABSOLUTE LYMPHOCYTES (AUTO) 1.8 10^3/uL (0.5-4.7); ABSOLUTE MONOCYTES (AUTO) 0.4 10^3/uL (0.1-1.4); ABSOLUTE NEUT (AUTO) 3.6 10^3/uL (1.7-8.2); BASOPHILS % (AUTO) 0.6 % (0-2); EOSINOPHILS % (AUTO) 2.8 % (0-6); HEMOGLOBIN 13.4 g/dL (13.5-17.0); HGB HCT DIFFERENCE 2.2; LYMPHOCYTES % (AUTO) 30.1 % (13-45); MEAN CORPUSCULAR HEMOGLOBIN 30.7 pg (27.0-33.4); MEAN CORPUSCULAR HGB CONC 35.2 g/dL (32.0-36.0); MEAN CORPUSCULAR VOLUME 87 fl (80-97); MONOCYTES % (AUTO) 6.5 % (3-13); RED BLOOD COUNT 4.36 10^6/uL (4.35-5.55); WHITE BLOOD COUNT 5.9 10^3/uL (4.0-10.5)
[2016-11-30 12:23] LABS: APPEARANCE,URINE CLEAR; BILIRUBIN,URINE NEGATIVE (NEGATIVE); GLUCOSE, URINE NEGATIVE (NEGATIVE); KETONES,URINE NEGATIVE (NEGATIVE); LEUKOCYTE ESTERASE,URINE NEGATIVE (NEGATIVE); NITRITE,URINE NEGATIVE (NEGATIVE); PROTEIN,URINE NEGATIVE (NEGATIVE); URINE SPECIFIC GRAVITY 1.002; UROBILINOGEN,URINE NEGATIVE mg/dL (<2.0)
[2016-11-30 12:39] LABS: ALANINE AMINOTRANSFERASE 27 U/L (21-72); ALBUMIN 5.2 g/dL (3.5-5.0); ALKALINE PHOSPHATASE 40 U/L (38-126); AMYLASE 39 U/L (30-110); ANION GAP 11 (5-19); ASPARTATE AMINO TRANSFERASE 22 U/L (17-59); BILIRUBIN,DIRECT 0.4 mg/dL (0.0-0.4); BILIRUBIN,TOTAL 0.6 mg/dL (0.2-1.3); BLOOD UREA NITROGEN 9 mg/dL (7-20); CALCIUM 10.5 mg/dL (8.4-10.2); CARBON DIOXIDE 28 mmol/L (22-30); CHLORIDE 103 mmol/L (98-107); CREATININE RESULT 0.85 mg/dL (0.52-1.25); GLUCOSE 89 mg/dL (75-110); LIPASE 58.2 U/L (23-300); POTASSIUM 4.6 mmol/L (3.6-5.0); SODIUM 141.9 mmol/L (137-145); TOTAL PROTEIN 7.7 g/dL (6.3-8.2)
--- NOTE | 2016-11-30 12:47 | ER Document Report ---
ED General - General Chief Complaint: Testicular Pain Stated Complaint: TESTICULAR PAIN Time Seen by Provider: 11/30/16 11:54 Mode of Arrival: Ambulatory Information source: Patient Notes: 26-year-old male presents with complaints of testicular pain since October. Patient notes he has been seen multiple times with no specific diagnosis. Patient denies any guilty urinating states it hurts all over patient has not seen the urologist as he has been told to do so TRAVEL OUTSIDE OF THE [place] IN LAST 30 DAYS: No - HPI Onset: Other Onset/Duration: Intermittent Quality of pain: Burning Severity: Mild Pain Level: 1 Associated symptoms: Other Exacerbated by: Denies Relieved by: Denies Similar symptoms previously: Yes Recently seen / treated by doctor: Yes - Related Data Allergies/Adverse Reactions: acetaminophen [From Tylenol-Codeine #3] Allergy (Verified 11/30/16 11:33) Hives codeine [From Tylenol-Codeine #3] Allergy (Verified 11/30/16 11:33) Hives tramadol Adverse Reaction (Verified 11/30/16 11:33) Vomiting Past Medical History - Social History Smoking Status: Current Every Day Smoker Cigarette use (# per day): Yes Chew tobacco use (# tins/day): No Smoking Education Provided: No Frequency of alcohol use: Rare Drug Abuse: None Family History: Reviewed & Not Pertinent Patient has suicidal ideation: No Patient has homicidal ideation: No Renal/ Medical History: Denies: Hx Peritoneal Dialysis Musculoskeltal Medical History: Reports Hx Musculoskeletal Deformity, Reports Hx Musculoskeletal Trauma Skin Medical History: Reports Hx MRSA - unsure if he was positive for MRSA in the past Past Surgical History: Reports: Hx Adenoidectomy, Hx Oral Surgery - [place] teeth , Hx Tonsillectomy - Immunizations Immunizations up to date: No Hx Diphtheria, Pertussis, Tetanus Vaccination: Yes Review of Systems - Review of Systems Notes: REVIEW OF SYSTEMS: CONSTITUTIONAL : Denies fever, chills, or sweats. Denies recent illness. EENT: Denies eye, ear, throat, or mouth pain or symptoms. Denies nasal or sinus congestion or discharge. Denies throat, tongue, or mouth swelling or difficulty swallowing. CARDIOVASCULAR: Denies chest pain. Denies palpitations or racing or irregular heart beat. Denies ankle edema. RESPIRATORY: Denies cough, cold, or chest congestion. Denies shortness of breath, difficulty breathing, or wheezing. GASTROINTESTINAL: Admits to testicular pain GENITOURINARY: Denies difficulty urinating, painful urination, burning, frequency, blood in urine, or discharge. MUSCULOSKELETAL: Denies back or neck pain or stiffness. Denies joint pain or swelling. SKIN: Denies rash, lesions or sores. HEMATOLOGIC : Denies easy bruising or bleeding. LYMPHATIC: Denies swollen, enlarged glands. NEUROLOGICAL: Denies confusion or altered mental status. Denies passing out or loss of consciousness. Denies dizziness or lightheadedness. Denies headache. Denies weakness or paralysis or loss of use of either side. Denies problems with gait or speech. Denies sensory loss, numbness, or tingling. Denies seizures. PSYCHIATRIC: Denies anxiety or stress. Denies depression, suicidal ideation, or homicidal ideation. ALL OTHER SYSTEMS REVIEWED AND NEGATIVE. Dictation was performed using [employer] voice recognition software PHYSICAL EXAMINATION: GENERAL: Well-appearing, well-nourished and in no acute distress. HEAD: Atraumatic, normocephalic. EYES: Pupils equal round and reactive to light, extraocular movements intact, sclera anicteric, conjunctiva are normal. ENT: Nares patent, oropharynx clear without exudates. Moist mucous membranes. NECK: Normal range of motion, supple without lymphadenopathy LUNGS: Breath sounds clear to auscultation bilaterally and equal. No wheezes rales or rhonchi. HEART: Regular rate and rhythm without murmurs ABDOMEN: Soft, nontender, nondistended abdomen. No guarding, no rebound. No masses appreciated. Cremaster reflexes intact patient notes tenderness all around the testicles scrotum inguinal region with no specific point tenderness Musculoskeletal: Normal range of motion, no pitting or edema. No cyanosis. NEUROLOGICAL: Cranial nerves grossly intact. Normal speech, normal gait. Normal sensory, motor exams PSYCH: Normal mood, normal affect. SKIN: Warm, Dry, normal turgor, no rashes or lesions noted. Physical Exam - Vital signs Vitals: Temp Pulse Resp BP Pulse Ox 98.6 F 84 18 97/62 L 100 11/30/16 11:37 11/30/16 11:37 11/30/16 11:37 11/30/16 11:37 11/30/16 11:37 Course - Re-evaluation Re-evalutation: 11/30/16 12:59 This is a very benign-appearing examination, the patient that we may not find the cause of his pain as this is now his third visit here that he must follow- up with a urologist for an actual diagnosis 11/30/16 15:15 Ultrasound report given to patient, he must follow-up with the urologist for further care patient states he will do so No testicular torsion is noted After performing a Medical Screening Examination, I estimate there is LOW risk for ACUTE APPENDICITIS, BOWEL OBSTRUCTION, ACUTE CHOLECYSTITIS, PERFORATED DIVERTICULITIS, INCARCERATED HERNIA, PANCREATITIS, or PERFORATED ULCER, thus I consider the discharge disposition reasonable. Also, there is no evidence or peritonitis, sepsis, or toxicity. I have reevaluated this patient multiple times and no significant life threatening changes are noted. The patient and I have discussed the diagnosis and risks, and we agree with discharging home with close follow-up with the understanding that symptoms and presentations can change. We also discussed returning to the Emergency Department immediately if new or worsening symptoms occur. We have discussed the symptoms which are most concerning (e.g., bloody stool, fever, changing or worsening pain, intractable vomiting - standard verbal up date) that necessitate immediate return. - Vital Signs Vital signs: Temp Pulse Resp BP Pulse Ox 97.3 F 70 16 103/69 98 11/30/16 15:08 11/30/16 15:08 11/30/16 15:08 11/30/16 15:08 11/30/16 15:08 - Laboratory Result Diagrams: 11/30/16 12:00 11/30/16 12:00 Laboratory results interpreted by me: 11/30/16 11/30/16 12:00 12:00 Hgb 13.4 L Calcium 10.5 H Albumin 5.2 H - Diagnostic Test Radiology reviewed: Image reviewed, Reports reviewed Discharge - Discharge Clinical Impression: Testicle pain Hydrocele Qualifiers: Hydrocele type: unspecified Qualified Code(s): N43.3 - Hydrocele, unspecified Condition: Stable Disposition: HOME, SELF-CARE Instructions: Hydrocele ([facility]) Prescriptions: Ketorolac Tromethamine [Toradol 10 mg Tablet] 10 mg PO Q6HP PRN #20 tablet PRN Reason: Referrals: ACACIA RAINES MD [ACTIVE STAFF] - Follow up tomorrow
--- NOTE | 2016-11-30 14:11 | RADIOLOGY REPORT (SQ) ---
EXAM DESCRIPTION: U/S SCROTUM W/DOPPLER COMPLETED DATE/TIME: 11/30/2016 1:45 pm REASON FOR STUDY: Bilateral testicular pain, intermittent COMPARISON: Scrotal ultrasound 11/19/2016, 11/08/2016 TECHNIQUE: Static and realtime yusuf scale imaging of the scrotum and testes. Selected color Doppler and spectral images recorded to document blood flow. LIMITATIONS: None. FINDINGS: RIGHT: TESTICLE: Normal size, 4.5 x 3.1 x 2.2 cm. Normal echotexture. Normal blood flow. No mass. EPIDIDYMIS: Normal. HYDROCELE OR VARICOCELE: No. HERNIA OR EXTRA-TESTICULAR MASS: No. OTHER: No other significant finding. LEFT: TESTICLE: Normal size, 3.9 x 2.9 x 2.1 cm. Normal echotexture. Normal blood flow. No mass. EPIDIDYMIS: Normal. HYDROCELE OR VARICOCELE: Trace hydrocele is present. Moderate-sized left varicocele, similar compare d to previous exams HERNIA OR EXTRA-TESTICULAR MASS: No. OTHER: No other significant finding. IMPRESSION: No ultrasound evidence of testicular torsion. Trace left hydrocele Moderate-sized left varicocele TECHNICAL DOCUMENTATION: JOB ID: [id number] [employer]- All Rights Reserved
[2016-11-30 15:09] VITALS: BP 103/69
== END 2016-11-30 15:09 | disposition home or self-care (01) ==
LOC: ER 11:26
DX: N43.3 Hydrocele, unspecified (principal); F17.210 Nicotine dependence, cigarettes, uncomplicated; Z88.5 Allergy status to narcotic agent; Z88.6 Allergy status to analgesic agent
CPT/HCPCS: 36415; 76870; 80053; 81001; 82150; 83690; 85025; 93976; 99284

== ENCOUNTER 2017-05-22 16:36 | Emergency (ER) | payer SELFPAY ==
[2017-05-22] MEDS ORDERED: NORMAL SALINE 1000 ML 1,000 ML IV ONE (16:56)
[2017-05-22] MEDS ORDERED: KETOROLAC TROMETHAMINE INJ/PF 30 MG/1 ML SDV IV ONE (16:56)
[2017-05-22] MEDS ORDERED: ONDANSETRON HCL INJ/PF 4 MG/2 ML SDV IV ONE (16:56)
[2017-05-22 17:13] LABS: ABSOLUTE EOSINOPHILS # (AUTO) 0.1 10^3/uL (0.0-0.6); ABSOLUTE LYMPHOCYTES (AUTO) 2.4 10^3/uL (0.5-4.7); ABSOLUTE MONOCYTES (AUTO) 0.6 10^3/uL (0.1-1.4); ABSOLUTE NEUT (AUTO) 8.1 10^3/uL (1.7-8.2); BASOPHILS % (AUTO) 0.4 % (0-2); EOSINOPHILS % (AUTO) 0.7 % (0-6); HEMATOCRIT 37.3 % (37.9-51.0); HEMOGLOBIN 12.6 g/dL (13.5-17.0); LYMPHOCYTES % (AUTO) 21.5 % (13-45); MEAN CORPUSCULAR HEMOGLOBIN 29.7 pg (27.0-33.4); MEAN CORPUSCULAR HGB CONC 33.7 g/dL (32.0-36.0); MEAN CORPUSCULAR VOLUME 88 fl (80-97); MONOCYTES % (AUTO) 5.1 % (3-13); PLATELET COUNT 267 10^3/uL (150-450); RED BLOOD COUNT 4.24 10^6/uL (4.35-5.55); RED CELL DISTRIBUTION WIDTH 13.8 % (11.5-14.0); SEGMENTED NEUTROPHILS % (AUTO) 72.3 % (42-78); TOTAL CELLS COUNTED % (AUTO) 100 %; WHITE BLOOD COUNT 11.2 10^3/uL (4.0-10.5)
[2017-05-22 17:35] LABS: ALANINE AMINOTRANSFERASE 22 U/L (21-72); ALKALINE PHOSPHATASE 36 U/L (38-126); ANION GAP 13 (5-19); ASPARTATE AMINO TRANSFERASE 20 U/L (17-59); BILIRUBIN,DIRECT 0.1 mg/dL (0.0-0.4); BILIRUBIN,TOTAL 0.4 mg/dL (0.2-1.3); BLOOD UREA NITROGEN 18 mg/dL (7-20); CALCIUM 10.4 mg/dL (8.4-10.2); CARBON DIOXIDE 28 mmol/L (22-30); CHLORIDE 104 mmol/L (98-107); GLUCOSE 93 mg/dL (75-110); LIPASE 125.2 U/L (23-300); POTASSIUM 3.7 mmol/L (3.6-5.0); SODIUM 144.6 mmol/L (137-145); TOTAL PROTEIN 7.3 g/dL (6.3-8.2)
[2017-05-22] MEDS ORDERED: ONDANSETRON ODT 4 MG TAB (6 TAB/ER DISP) PO PRN (18:16)
--- NOTE | 2017-05-22 18:22 | ER Document Report ---
ED General - General Chief Complaint: Nausea/Vomiting/Diarrhea Stated Complaint: FLU SYMPTOMS Time Seen by Provider: 05/22/17 16:52 TRAVEL OUTSIDE OF THE [place] IN LAST 30 DAYS: No - HPI Patient complains to provider of: Nausea vomiting diarrhea Notes: Patient coming in for complaints of nausea vomiting diarrhea ongoing for approximately 24 hours. Patient states multiple sick contacts at home mostly his son similar symptoms. Patient denies any fevers denies any recent antibiotics. Patient resting comfortably upon my evaluation states he was unable to tolerate any p.o. today. Patient looks nontoxic upon my evaluation. - Related Data Allergies/Adverse Reactions: acetaminophen [From Tylenol-Codeine #3] Allergy (Verified 05/22/17 16:55) Hives codeine [From Tylenol-Codeine #3] Allergy (Verified 05/22/17 16:55) Hives tramadol Adverse Reaction (Verified 05/22/17 16:55) Vomiting Past Medical History - Social History Smoking Status: Current Every Day Smoker Frequency of alcohol use: None Drug Abuse: None Family History: Reviewed & Not Pertinent Patient has suicidal ideation: No Patient has homicidal ideation: No Neurological Medical History: Reports: Hx Migraine Renal/ Medical History: Denies: Hx Peritoneal Dialysis Musculoskeltal Medical History: Reports Hx Musculoskeletal Deformity, Reports Hx Musculoskeletal Trauma Skin Medical History: Reports Hx MRSA - unsure if he was positive for MRSA in the past Past Surgical History: Reports: Hx Adenoidectomy, Hx Oral Surgery - [place] teeth , Hx Tonsillectomy - Immunizations Immunizations up to date: No Hx Diphtheria, Pertussis, Tetanus Vaccination: Yes Review of Systems - Review of Systems Constitutional: No symptoms reported EENT: No symptoms reported Cardiovascular: No symptoms reported Respiratory: No symptoms reported Gastrointestinal: Diarrhea, Nausea, Vomiting Genitourinary: No symptoms reported Male Genitourinary: No symptoms reported Musculoskeletal: No symptoms reported Skin: No symptoms reported Hematologic/Lymphatic: No symptoms reported Neurological/Psychological: No symptoms reported Physical Exam - Vital signs Vitals: Temp Pulse Resp BP Pulse Ox 98.0 F 80 18 121/68 100 05/22/17 16:40 05/22/17 16:40 05/22/17 16:40 05/22/17 16:40 05/22/17 16:40 Interpretation: Normal - General General appearance: Appears well, Alert - HEENT Head: Normocephalic, Atraumatic Eyes: Normal Pupils: PERRL - Respiratory Respiratory status: No respiratory distress Chest status: Nontender Breath sounds: Normal Chest palpation: Normal - Cardiovascular Rhythm: Regular Heart sounds: Normal auscultation Murmur: No - Abdominal Inspection: Normal Distension: No distension Bowel sounds: Normal Tenderness: Nontender Organomegaly: No organomegaly - Back Back: Normal, Nontender - Extremities General upper extremity: Normal inspection, Nontender, Normal color, Normal ROM , Normal temperature General lower extremity: Normal inspection, Nontender, Normal color, Normal ROM , Normal temperature, Normal weight bearing. No: Benjamin's sign - Neurological Neuro grossly intact: Yes Cognition: Normal Orientation: AAOx4 Wanda Coma Scale Eye Opening: Spontaneous Wanda Coma Scale Verbal: Oriented Wanda Coma Scale Motor: Obeys Commands [place] Coma Scale Total: 15 Speech: Normal Motor strength normal: LUE, RUE, LLE, RLE Sensory: Normal - Psychological Associated symptoms: Normal affect, Normal mood - Skin Skin Temperature: Warm Skin Moisture: Dry Skin Color: Normal Course - Re-evaluation Re-evalutation: 05/22/17 23:44 The patient presents with nausea vomiting diarrhea without signs of peritonitis or other life-threatening or serious etiology. The patient appears stable for discharge and has been instructed to return immediately if the symptoms worsen in any way, or in 8-12hr if not improved for re-evaluation. The patient has been instructed to return if the symptoms worsen or change in any way. - Vital Signs Vital signs: Temp Pulse Resp BP Pulse Ox 98.1 F 75 16 120/60 99 05/22/17 18:30 05/22/17 18:30 05/22/17 18:30 05/22/17 18:30 05/22/17 18:30 - Laboratory Result Diagrams: 05/22/17 15:25 05/22/17 15:25 Laboratory results interpreted by me: 05/22/17 05/22/17 15:25 15:25 WBC 11.2 H RBC 4.24 L Hgb 12.6 L Hct 37.3 L Calcium 10.4 H Alkaline Phosphatase 36 L Discharge - Discharge Clinical Impression: Nausea vomiting and diarrhea Disposition: HOME, SELF-CARE Instructions: Clear Liquid Diet ([facility]), Gastroenteritis (adult) ([facility]) Additional Instructions: Your laboratory studies not show any signs of significant pathology at this time. Do believe her symptoms are caused by underlying GI virus. Please stick to a clear liquid diet for the next 1224 hrs. and advance I would recommend starchy foods first along with clear liquids. Take medication as prescribed return to ER symptoms worsen. Tylenol Motrin for pain control. Prescriptions: Ondansetron [Zofran Odt] 4 mg PO Q6 PRN #30 tab.rapdis PRN Reason: For Nausea/Vomiting Promethazine HCl [Phenergan 25 mg Tablet] 25 mg PO Q6 #30 tablet Forms: Return to Work
[2017-05-22 18:32] VITALS: BP 120/60
== END 2017-05-22 18:30 | disposition home or self-care (01) ==
LOC: ER 16:36
DX: R11.2 Nausea with vomiting, unspecified (principal); R19.7 Diarrhea, unspecified; F17.200 Nicotine dependence, unspecified, uncomplicated; Z88.6 Allergy status to analgesic agent; Z88.5 Allergy status to narcotic agent
CPT/HCPCS: 99283; 96361; 96374; 96375; 36415; 83690; 85025; 80053; J1885; J2405; J7030

== ENCOUNTER 2017-05-27 10:08 | Emergency (ER) | payer SELFPAY ==
[2017-05-27] MEDS ORDERED: NORMAL SALINE 1000 ML 1,000 ML IV ONE (10:43)
--- NOTE | 2017-05-27 10:44 | ER Document Report ---
ED Medical Screen (RME) - General Chief Complaint: Abdominal Pain Stated Complaint: STOMACH PAIN Time Seen by Provider: 05/27/17 10:43 Mode of Arrival: Ambulatory Information source: Patient Notes: 26-year-old male presents with complaints of generalized abdominal pain nausea vomiting decreased appetite over the past 2 days. Patient denies any fevers or chills Patient has been seen multiple times for abdominal pain and testicular pain denies any testicular pain at this time I have greeted and performed a rapid initial assessment of this patient. A comprehensive ED assessment and evaluation of the patient, analysis of test results and completion of the medical decision making process will be conducted by additional ED providers. PHYSICAL EXAMINATION: GENERAL: Well-appearing, well-nourished and in no acute distress. HEAD: Atraumatic, normocephalic. EYES: Pupils equal round extraocular movements intact, conjunctiva are normal. ENT: Nares patent NECK: Normal range of motion LUNGS: No respiratory distress Musculoskeletal: Normal range of motion NEUROLOGICAL: Normal speech, normal gait. PSYCH: Normal mood, normal affect. SKIN: Warm, Dry, normal turgor, no rashes or lesions noted. TRAVEL OUTSIDE OF THE [place] IN LAST 30 DAYS: No - Related Data Allergies/Adverse Reactions: codeine [From Tylenol-Codeine #3] Allergy (Verified 05/27/17 10:35) Hives tramadol Adverse Reaction (Verified 05/27/17 10:35) Vomiting Past Medical History - Social History Chew tobacco use (# tins/day): No Frequency of alcohol use: None Drug Abuse: None Neurological Medical History: Reports: Hx Migraine Renal/ Medical History: Denies: Hx Peritoneal Dialysis Musculoskeltal Medical History: Reports Hx Musculoskeletal Deformity, Reports Hx Musculoskeletal Trauma Skin Medical History: Reports Hx MRSA - unsure if he was positive for MRSA in the past Past Surgical History: Reports: Hx Adenoidectomy, Hx Oral Surgery - [place] teeth , Hx Tonsillectomy - Immunizations Immunizations up to date: No Hx Diphtheria, Pertussis, Tetanus Vaccination: Yes Physical Exam - Vital signs Vitals: Temp Pulse Resp BP Pulse Ox 98.7 F 90 18 116/68 98 05/27/17 10:19 05/27/17 10:19 05/27/17 10:19 05/27/17 10:19 05/27/17 10:19 Course - Vital Signs Vital signs: Temp Pulse Resp BP Pulse Ox 98.7 F 90 18 116/68 98 05/27/17 10:19 05/27/17 10:19 05/27/17 10:19 05/27/17 10:19 05/27/17 10:19
[2017-05-27 11:01] LABS: ABSOLUTE EOSINOPHILS # (AUTO) 0.1 10^3/uL (0.0-0.6); ABSOLUTE LYMPHOCYTES (AUTO) 1.6 10^3/uL (0.5-4.7); ABSOLUTE MONOCYTES (AUTO) 0.4 10^3/uL (0.1-1.4); ABSOLUTE NEUT (AUTO) 4.6 10^3/uL (1.7-8.2); BASOPHILS % (AUTO) 0.7 % (0-2); EOSINOPHILS % (AUTO) 1.6 % (0-6); HEMATOCRIT 38.6 % (37.9-51.0); HEMOGLOBIN 13.1 g/dL (13.5-17.0); LYMPHOCYTES % (AUTO) 24.3 % (13-45); MEAN CORPUSCULAR VOLUME 88 fl (80-97); MONOCYTES % (AUTO) 5.2 % (3-13); PLATELET COUNT 253 10^3/uL (150-450); RED BLOOD COUNT 4.37 10^6/uL (4.35-5.55); RED CELL DISTRIBUTION WIDTH 13.9 % (11.5-14.0); SEGMENTED NEUTROPHILS % (AUTO) 68.2 % (42-78); TOTAL CELLS COUNTED % (AUTO) 100 %; WHITE BLOOD COUNT 6.7 10^3/uL (4.0-10.5)
[2017-05-27 11:18] LABS: ALANINE AMINOTRANSFERASE 19 U/L (21-72); ALBUMIN 4.7 g/dL (3.5-5.0); ALKALINE PHOSPHATASE 43 U/L (38-126); ANION GAP 13 (5-19); ASPARTATE AMINO TRANSFERASE 16 U/L (17-59); BILIRUBIN,DIRECT 0.1 mg/dL (0.0-0.4); BILIRUBIN,TOTAL 0.2 mg/dL (0.2-1.3); BLOOD UREA NITROGEN 14 mg/dL (7-20); CALCIUM 9.8 mg/dL (8.4-10.2); CARBON DIOXIDE 27 mmol/L (22-30); CHLORIDE 106 mmol/L (98-107); GLUCOSE 93 mg/dL (75-110); LIPASE 67.9 U/L (23-300); POTASSIUM 4.3 mmol/L (3.6-5.0); SODIUM 145.6 mmol/L (137-145); TOTAL PROTEIN 7.1 g/dL (6.3-8.2)
--- NOTE | 2017-05-27 12:43 | RADIOLOGY REPORT (SQ) ---
EXAM DESCRIPTION: ACUTE ABDOMEN SERIES COMPLETED DATE/TIME: 05/27/2017 12:27 pm REASON FOR STUDY: abd pain COMPARISON: None. NUMBER OF VIEWS: Three views. TECHNIQUE: Frontal chest, supine abdomen and upright/ abdomen radiographic images acquired. LIMITATIONS: None. FINDINGS: CHEST: Lungs clear of infiltrates. FREE AIR: None. No abnormal gas collections. BOWEL GAS PATTERN: Nonobstructive pattern. No dilated loops or air fluid levels. CALCIFICATIONS: No suspicious calcifications. HARDWARE: None in the abdomen. SOFT TISSUES: No gross mass or suggestion of organomegaly. BONES: No acute fracture. No worrisome bone lesions. OTHER: No other significant finding. IMPRESSION: NO RADIOGRAPHIC EVIDENCE FOR ACUTE ABDOMINAL DISEASE. TECHNICAL DOCUMENTATION: JOB ID: [id number] [employer]- All Rights Reserved Reading location - IP/workstation name: [email or web address]
--- NOTE | 2017-05-27 13:18 | ER Document Report ---
ED General - General Chief Complaint: Abdominal Pain Stated Complaint: STOMACH PAIN Time Seen by Provider: 05/27/17 10:43 Mode of Arrival: Ambulatory TRAVEL OUTSIDE OF THE [place] IN LAST 30 DAYS: No - HPI Patient complains to provider of: Abdominal pain Notes: Patient coming in for stomach pain. Patient was recently seen diagnosed with gastroenteritis. Patient states continues to have crampy abdominal pain. Denies fevers chills. Patient resting comfortably upon my evaluation states pain is diffuse. - Related Data Allergies/Adverse Reactions: codeine [From Tylenol-Codeine #3] Allergy (Verified 05/27/17 10:35) Hives tramadol Adverse Reaction (Verified 05/27/17 10:35) Vomiting Past Medical History - General Information source: Patient - Social History Smoking Status: Current Every Day Smoker Chew tobacco use (# tins/day): No Frequency of alcohol use: None Drug Abuse: None Family History: Reviewed & Not Pertinent Patient has suicidal ideation: No Patient has homicidal ideation: No Neurological Medical History: Reports: Hx Migraine Renal/ Medical History: Denies: Hx Peritoneal Dialysis Musculoskeltal Medical History: Reports Hx Musculoskeletal Deformity, Reports Hx Musculoskeletal Trauma Skin Medical History: Reports Hx MRSA - unsure if he was positive for MRSA in the past Past Surgical History: Reports: Hx Adenoidectomy, Hx Oral Surgery - [place] teeth , Hx Tonsillectomy - Immunizations Immunizations up to date: No Hx Diphtheria, Pertussis, Tetanus Vaccination: Yes Review of Systems - Review of Systems Constitutional: No symptoms reported EENT: No symptoms reported Cardiovascular: No symptoms reported Respiratory: No symptoms reported Gastrointestinal: Abdominal pain, Nausea, Vomiting Genitourinary: No symptoms reported Male Genitourinary: No symptoms reported Musculoskeletal: No symptoms reported Skin: No symptoms reported Hematologic/Lymphatic: No symptoms reported Neurological/Psychological: No symptoms reported -: Yes All other systems reviewed and negative Physical Exam - Vital signs Vitals: Temp Pulse Resp BP Pulse Ox 98.7 F 90 18 116/68 98 05/27/17 10:19 05/27/17 10:19 05/27/17 10:19 05/27/17 10:19 05/27/17 10:19 Interpretation: Normal - General General appearance: Appears well, Alert - HEENT Head: Normocephalic, Atraumatic Eyes: Normal Pupils: PERRL - Respiratory Respiratory status: No respiratory distress Chest status: Nontender Breath sounds: Normal Chest palpation: Normal - Cardiovascular Rhythm: Regular Heart sounds: Normal auscultation Murmur: No - Abdominal Inspection: Normal Distension: No distension Bowel sounds: Normal Tenderness: Nontender. No: Tender, McBurney's point, Martinez's sign, Guarding, Rebound Organomegaly: No organomegaly - Back Back: Normal, Nontender - Extremities General upper extremity: Normal inspection, Nontender, Normal color, Normal ROM , Normal temperature General lower extremity: Normal inspection, Nontender, Normal color, Normal ROM , Normal temperature, Normal weight bearing. No: Benjamin's sign - Neurological Neuro grossly intact: Yes Cognition: Normal Orientation: AAOx4 [place] Coma Scale Eye Opening: Spontaneous Wanda Coma Scale Verbal: Oriented [place] Coma Scale Motor: Obeys Commands Wanda Coma Scale Total: 15 Speech: Normal Motor strength normal: LUE, RUE, LLE, RLE Sensory: Normal - Psychological Associated symptoms: Normal affect, Normal mood - Skin Skin Temperature: Warm Skin Moisture: Dry Skin Color: Normal Course - Re-evaluation Re-evalutation: 05/27/17 15:37 The patient presents with abdominal pain without signs of peritonitis or other life-threatening or serious etiology. The patient appears stable for discharge and has been instructed to return immediately if the symptoms worsen in any way , or in 8-12hr if not improved for re-evaluation. The patient has been instructed to return if the symptoms worsen or change in any way. - Vital Signs Vital signs: Temp Pulse Resp BP Pulse Ox 98.7 F 69 16 117/70 100 05/27/17 10:19 05/27/17 13:30 05/27/17 13:30 05/27/17 13:30 05/27/17 13:30 - Laboratory Result Diagrams: 05/27/17 10:50 05/27/17 10:50 Laboratory results interpreted by me: 05/27/17 05/27/17 10:50 10:50 Hgb 13.1 L Sodium 145.6 H AST 16 L ALT 19 L Discharge - Discharge Clinical Impression: Abdominal pain Qualifiers: Abdominal location: unspecified location Qualified Code(s): R10.9 - Unspecified abdominal pain Disposition: HOME, SELF-CARE Instructions: Abdominal Pain ([facility]) Additional Instructions: Your laboratory studies and x-ray did not show any acute pathology. More likely have a viral etiology for your abdominal pain. Please take medication as prescribed return to the ER for any worsening symptoms. Prescriptions: Dicyclomine HCl [Bentyl 20 mg Tablet] 20 mg PO QID #40 tablet Ondansetron [Zofran Odt] 4 mg PO Q6 PRN #30 tab.rapdis PRN Reason: For Nausea/Vomiting Forms: Return to Work
[2017-05-27 13:31] VITALS: BP 117/70
== END 2017-05-27 13:32 | disposition home or self-care (01) ==
LOC: ER 10:08
DX: R10.9 Unspecified abdominal pain (principal); F17.200 Nicotine dependence, unspecified, uncomplicated
CPT/HCPCS: 99284; 96360; 36415; 83690; 85025; 80053; 74022; J7030

== ENCOUNTER 2017-07-05 08:47 | Emergency (ER) | payer SELFPAY ==
--- NOTE | 2017-07-05 09:08 | ER Document Report ---
ED GI/ - General Chief Complaint: Abdominal Pain Stated Complaint: STOMACH PAIN Time Seen by Provider: 07/05/17 08:58 Notes: Patient is a 26-year-old male who presents emergency department the chief complaint of left lower abdominal pain. Patient states that he had symptoms initially starting on Tuesday with vomiting. He states since then he developed left lower abdominal pain yesterday. Patient states that it is been a constant stabbing pain in the left lower quadrant radiating throughout his whole abdomen. States that he has not been able tolerate much p.o. due to nausea and fear of vomiting. He denies any fevers or chills, hematemesis, coffee-ground emesis, bright red blood per rectum or melena. He admits to bowel movements that have been firm and has had to strain. Patient states that his last bowel movement was yesterday. He denies any history of gastrointestinal disease, knowledge of family history significant for kidney stones, Crohn's disease, IBS or ulcerative colitis. Patient denies any notable bulging in his pelvis. 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 TRAVEL OUTSIDE OF THE [place] IN LAST 30 DAYS: No - Related Data Allergies/Adverse Reactions: codeine [From Tylenol-Codeine #3] Allergy (Verified 07/05/17 08:48) Hives tramadol Adverse Reaction (Verified 07/05/17 08:48) Vomiting Past Medical History - Social History Smoking Status: Current Every Day Smoker Family History: Reviewed & Not Pertinent Neurological Medical History: Reports: Hx Migraine Renal/ Medical History: Denies: Hx Peritoneal Dialysis Musculoskeltal Medical History: Reports Hx Musculoskeletal Deformity, Reports Hx Musculoskeletal Trauma Skin Medical History: Reports Hx MRSA - unsure if he was positive for MRSA in the past Past Surgical History: Reports: Hx Adenoidectomy, Hx Oral Surgery - [place] teeth , Hx Tonsillectomy - Immunizations Immunizations up to date: No Hx Diphtheria, Pertussis, Tetanus Vaccination: Yes Review of Systems - Review of Systems Constitutional: No symptoms reported Cardiovascular: No symptoms reported Respiratory: No symptoms reported Gastrointestinal: See HPI Genitourinary: No symptoms reported Male Genitourinary: No symptoms reported Musculoskeletal: No symptoms reported -: Yes All other systems reviewed and negative Physical Exam - Vital signs Vitals: Temp Pulse Resp BP Pulse Ox 98.1 F 95 18 124/57 L 99 07/05/17 08:50 07/05/17 08:50 07/05/17 08:50 07/05/17 08:50 07/05/17 08:50 - Notes Notes: PHYSICAL EXAM GENERAL: Alert, interacts well. HEAD: Normocephalic, atraumatic. EYES: Pupils equal, round, and reactive to light. Extraocular movements intact. ENT: Oral mucosa moist, tongue midline. NECK: Full range of motion. Supple. Trachea midline. LUNGS: Clear to auscultation bilaterally, no wheezes, rales, or rhonchi. No respiratory distress. HEART: Regular rate and rhythm. No murmurs, gallops, or rubs. ABDOMEN: Soft, nondistended, nontender. No guarding, rebound, or rigidity.. Bowel sounds present in all 4 quadrants. Male : No evidence of lesions, inguinal bulging. No evidence of inguinal hernia. Testicles nontender and equal bilaterally without edema. Cremasteric reflex intact bilaterally. Patient does have palpable inguinal lymphadenopathy bilaterally that is soft and mobile. EXTREMITIES: Moves all 4 extremities spontaneously. No edema, radial and dorsalis pedis pulses 2/4 bilaterally. No cyanosis. NEUROLOGICAL: Alert and oriented x4. Normal speech. PSYCH: Normal affect, normal mood. SKIN: Warm, dry, normal turgor. No rashes or lesions noted. Course - Re-evaluation Re-evalutation: 07/05/17 13:11 Patient is a 26-year-old male is hemodynamically stable, no acute distress afebrile. Patient's CBC stable without leukocytosis or anemia. No evidence of electrolyte abnormalities, renal or hepatic insufficiency. Patient's urinalysis without any significant dehydration, concerns for UTI. On reexamination. Patient states he is still having left lower quadrant pain. Repeat abdominal exams without any significant abdominal tenderness concern for rebound tenderness or peritonitis. Patient states that when he did go to urinate that he did have pain radiate down into his groin. Patient was checked for hernias on physical exam without any evidence or concern for incarcerated hernia. Patient was sent for a CT to rule out evidence of kidney stones. This came back negative but did show evidence of stool within the colon. No evidence of diverticulitis or colitis. Did review the CT findings with the patient. Did discuss with him management of constipation at home and strict return precautions. Patient stable for discharge home. - Vital Signs Vital signs: Temp Pulse Resp BP Pulse Ox 97.8 F 72 18 117/76 99 07/05/17 13:25 07/05/17 13:25 07/05/17 08:50 07/05/17 13:25 07/05/17 13:25 - Laboratory Result Diagrams: 07/05/17 09:22 07/05/17 09:22 Laboratory results interpreted by me: 07/05/17 07/05/17 09:22 09:22 Hgb 13.2 L Alkaline Phosphatase 35 L - Diagnostic Test Radiology reviewed: Image reviewed, Reports reviewed Discharge - Discharge Clinical Impression: Constipation Qualifiers: Constipation type: unspecified constipation type Qualified Code(s): K59.00 - Constipation, unspecified Condition: Good Disposition: HOME, SELF-CARE Additional Instructions: ABDOMINAL PAIN: There are many causes of abdominal pain. Pain can mean a serious problem requiring surgery (such as appendicitis). It can also be an innocent problem that goes away on its own (such as a viral infection). Often, time must pass to determine the cause of pain. The physician does not feel that hospitalization is necessary, at present. Things may change within the next 24 hours. Call the doctor or come back for re- examination if any problems occur, such as: (1) Pain that becomes more severe, steady, or becomes concentrated in one specific area. Also, pain that is more severe with movement or coughing. (2) Vomiting that persists or becomes more frequent. (3) Blood in the vomitus, urine, or bowel movements. Blood in the stool may have a tarry or black appearance. (4) Shaking chills or fever greater than 100 degrees F. (5) The abdomen becomes more distended or swollen. (6) Bowel movements cease. (7) Failure to improve as expected. NORMAL EXAM AND WORKUP: At this time, your examination and workup show no significant abnormality. No significant abnormal physical findings are noted. All laboratory, EKG, and imaging (x-ray, CT scans, ultrasound) studies that were ordered show no significant abnormality. Although your examination and all studies that were ordered showed no significant abnormal finding, there are no examinations and no studies that are 100% accurate. There is always the possibility that some abnormality could exist and not be detected with physical examination or within the limits and capabilities of laboratory and other studies. You should return or follow up as you were instructed on your visit today for further evaluation if your symptoms do not resolve. CONSTIPATION: Constipation is a common problem. It is especially likely as you get older. Constipation is a common cause of abdominal pain, but sometimes causes no symptoms at all. Causes of constipation include certain medications, dehydration, diets, inactivity, and low-fiber intake. Rarely, it can be a symptom of underlying disease. The physician has evaluated you for this. Avoid constipation by eating a diet high in fiber, fruits, and vegetables. Drink plenty of liquids. Get regular exercise. If possible, avoid constipating medicines like narcotic pain medication. Some vitamin tablets can cause constipation. Stool softeners may be needed for difficult cases. An excellent stool softener is Konsyl which is available at [employer]. Just add a teaspoon to a glass of pineapple or orange juice daily or twice a day if needed. Laxatives are useful for occasional constipation. You should use them only when necessary. Too-frequent use can make your bowels dependent on them. Some over the counter laxatives available without prescription are: Milk of Magnesia, 1-2 tablespoons twice a day Dulcolax, 5 mg pill or 10 mg suppository. Citrate of Magnesia, 4-5 ounces a day for a day or two For acute constipation, Fleet's Enemas and Dulcolax suppositories are helpful. Chronic, long-term use of laxatives or enemas is not a good idea. Your bowel may become dependant on them. You do not need to have a bowel movement every day. Many people do fine with a bowel movement every three or four days. You should call your doctor or return for re-evaluation if you pass blood in the stool, or if you develop fever or increasing abdominal pain. BULK LAXATIVES: Bulk laxatives make the stool softer and bulkier. They're useful for preventing constipation. You can choose between psyllium, methylcellulose, and polycarbophil. They are available without a prescription. Psyllium brand names include Konsyl, Metamucil, Perdiem, Effer-Syllium and Hydrocil. It's available as powder, flavored drink powder, or chewable. The usual dose of psyllium powder is one heaping teaspoon in water each morning, increasing to twice a day if needed. Parker juice can disguise the slightly grainy texture. Methylcellulose is marketed as Citrucel and other brands. The average dose is two grams in a cup of water one to three times a day. Polycarbophil is marketed as Fiber-Con. Take two tablets with a cup of water one to three times a day. LAXATIVE: A laxative agent has been prescribed for your condition. This should result in passage of stool within 12 hours. Some mild intestinal cramping is common as the hard stool begins to move. You may have loose or runny stools for a short time. Contact your doctor if there is severe cramping, vomiting, or passage of blood. Return for further care if this medicine fails to improve your condition. FOLLOW-UP CARE: If you have been referred to a physician for follow-up care, call the physician s office for an appointment as you were instructed or within the next two days. If you experience worsening or a significant change in your symptoms, notify the physician immediately or return to the Emergency Department at any time for re-evaluation. Prescriptions: Ondansetron [Zofran Odt 4 mg Tablet] 1 - 2 tab PO Q4H PRN #15 tab.rapdis PRN Reason: For Nausea/Vomiting Forms: Return to Work
[2017-07-05] MEDS ORDERED: ONDANSETRON HCL INJ/PF 4 MG/2 ML SDV IV ONE (09:09)
[2017-07-05] MEDS ORDERED: NORMAL SALINE 1000 ML 1,000 ML IV ONE (09:09)
[2017-07-05] MEDS ORDERED: KETOROLAC TROMETHAMINE INJ/PF 30 MG/1 ML SDV IV ONE ×2 (09:09→11:37)
[2017-07-05 09:34] LABS: ABSOLUTE EOSINOPHILS # (AUTO) 0.2 10^3/uL (0.0-0.6); ABSOLUTE LYMPHOCYTES (AUTO) 1.8 10^3/uL (0.5-4.7); ABSOLUTE MONOCYTES (AUTO) 0.3 10^3/uL (0.1-1.4); ABSOLUTE NEUT (AUTO) 3.8 10^3/uL (1.7-8.2); BASOPHILS % (AUTO) 0.7 % (0-2); EOSINOPHILS % (AUTO) 3.7 % (0-6); HEMATOCRIT 39.1 % (37.9-51.0); HEMOGLOBIN 13.2 g/dL (13.5-17.0); LYMPHOCYTES % (AUTO) 28.5 % (13-45); MEAN CORPUSCULAR HEMOGLOBIN 29.8 pg (27.0-33.4); MEAN CORPUSCULAR HGB CONC 33.7 g/dL (32.0-36.0); MEAN CORPUSCULAR VOLUME 88 fl (80-97); MONOCYTES % (AUTO) 5.5 % (3-13); PLATELET COUNT 208 10^3/uL (150-450); RED BLOOD COUNT 4.43 10^6/uL (4.35-5.55); RED CELL DISTRIBUTION WIDTH 13.9 % (11.5-14.0); SEGMENTED NEUTROPHILS % (AUTO) 61.6 % (42-78); TOTAL CELLS COUNTED % (AUTO) 100 %; WHITE BLOOD COUNT 6.2 10^3/uL (4.0-10.5)
[2017-07-05 09:53] LABS: ALANINE AMINOTRANSFERASE 23 U/L (21-72); ALBUMIN 4.5 g/dL (3.5-5.0); ALKALINE PHOSPHATASE 35 U/L (38-126); ANION GAP 12 (5-19); ASPARTATE AMINO TRANSFERASE 23 U/L (17-59); BILIRUBIN,DIRECT 0.2 mg/dL (0.0-0.4); BILIRUBIN,TOTAL 0.2 mg/dL (0.2-1.3); BLOOD UREA NITROGEN 16 mg/dL (7-20); CALCIUM 9.8 mg/dL (8.4-10.2); CARBON DIOXIDE 30 mmol/L (22-30); CHLORIDE 102 mmol/L (98-107); GLUCOSE 87 mg/dL (75-110); LIPASE 49.8 U/L (23-300); POTASSIUM 4.3 mmol/L (3.6-5.0); SODIUM 144.1 mmol/L (137-145); TOTAL PROTEIN 6.8 g/dL (6.3-8.2)
[2017-07-05 11:02] LABS: APPEARANCE,URINE CLEAR; BILIRUBIN,URINE NEGATIVE (NEGATIVE); COLOR,URINE YELLOW; GLUCOSE, URINE NEGATIVE (NEGATIVE); KETONES,URINE NEGATIVE (NEGATIVE); LEUKOCYTE ESTERASE,URINE NEGATIVE (NEGATIVE); NITRITE,URINE NEGATIVE (NEGATIVE); PROTEIN,URINE NEGATIVE (NEGATIVE); URINE SPECIFIC GRAVITY 1.009; UROBILINOGEN,URINE NEGATIVE mg/dL (<2.0)
[2017-07-05 11:28] LABS: URINE AMPHETAMINES SCREEN NEGATIVE; URINE BARBITURATES SCREEN NEGATIVE; URINE BENZODIAZEPINES SCREEN NEGATIVE; URINE COCAINE SCREEN NEGATIVE; URINE MARIJUANA (THC) SCREEN UNCONFIRMED POSITIVE; URINE METHADONE SCREEN UNCONFIRMED POSITIVE; URINE PHENCYCLIDINE SCREEN NEGATIVE
[2017-07-05 12:47] LABS: CHLAM PCR NOT DETECTED (NOT DETECT); GON PCR NOT DETECTED (NOT DETECT)
--- NOTE | 2017-07-05 12:52 | RADIOLOGY REPORT (SQ) ---
EXAM DESCRIPTION: CT LTD RENAL STONE PROTOCOL ON COMPLETED DATE/TIME: 07/05/2017 12:29 pm REASON FOR STUDY: left inguinal/flank pain COMPARISON: October 2016 TECHNIQUE: CT scan of the abdomen and pelvis performed without intravenous or oral contrast. Images reviewed with lung, soft tissue, and bone windows. Reconstructed coronal and sagittal MPR images revi ewed. All images stored on PACS. All CT scanners at this facility use dose modulation, iterative reconstruction, and/or weight based d osing when appropriate to reduce radiation dose to as low as reasonably achievable (ALARA). [facility]: Dose Right [facility]: CareDose [facility]: Dose Right [facility]: Teradose 4D [facility]: [employer] RADIATION DOSE: CT Rad equipment meets quality standard of care and radiation dose reduction techniq ues were employed. CTDIvol: 4.8 mGy. DLP: 259 mGy-cm.mGy. LIMITATIONS: None. FINDINGS: LOWER CHEST: No significant findings. No nodules or infiltrates. NON-CONTRASTED LIVER, SPLEEN, ADRENALS: Evaluation limited by lack of IV contrast. No identified sign ificant masses. PANCREAS: No masses. No peripancreatic inflammatory changes. GALLBLADDER: No identified stones by CT criteria. No inflammatory changes to suggest cholecystitis. RIGHT KIDNEY AND URETER: No suspicious masses. Assessment limited by lack of IV contrast. No signif icant calcifications. No hydronephrosis or hydroureter. LEFT KIDNEY AND URETER: No suspicious masses. Assessment limited by lack of IV contrast. No signifi cant calcifications. No hydronephrosis or hydroureter. AORTA AND RETROPERITONEUM: No aneurysm. No retroperitoneal masses or adenopathy. BOWEL AND PERITONEAL CAVITY: No obvious masses or inflammatory changes. No free fluid. There is a mo derate amount a gas and fecal material throughout the colon. APPENDIX: Not identified PELVIS, BLADDER, AND ABDOMINAL WALL:No abnormal masses. No free fluid. Bladder normal. BONES: No significant findings. OTHER: No other significant finding. IMPRESSION: NO SIGNIFICANT OR ACUTE PROCESS IN THE ABDOMEN OR PELVIS. COMMENT: Quality ID # [id number]: Final reports with documentation of one or more dose reduction techniques (e.g., Automated exposure control, adjustment of the mA and/or kV according to patient size, use of iterative reconstruction technique) TECHNICAL DOCUMENTATION: JOB ID: [id number] [employer] All Rights Reserved Reading location - IP/workstation name: [email or web address]
[2017-07-05 13:32] VITALS: BP 117/76
== END 2017-07-05 13:32 | disposition home or self-care (01) ==
LOC: ER 08:47
DX: K59.00 Constipation, unspecified (principal); R10.32 Left lower quadrant pain; R11.10 Vomiting, unspecified; F17.200 Nicotine dependence, unspecified, uncomplicated; Z88.6 Allergy status to analgesic agent; Z86.14 Personal history of Methicillin resistant Staphylococcus aureus infection
CPT/HCPCS: 96376; 99284; 96361; 96374; 96375; 36415; 83690; 85025; 80053; 81001; 80307; 87491; 87591; 76380; J1885; J2405; J7030

== ENCOUNTER 2017-10-01 07:35 | Emergency (ER) | payer SELFPAY ==
[2017-10-01 07:41] VITALS: BP 110/61
[2017-10-01] MEDS ORDERED: BUPIVACAINE HCL 0.75% INJ/PF (7.5 MG/1 ML) 10 ML SDV INJ ONE (07:53)
[2017-10-01] MEDS ORDERED: LIDOCAINE 2% VISCOUS SOLN 20 ML UDCUP PO ONE (07:58)
--- NOTE | 2017-10-01 07:58 | ER Document Report ---
HPI - HPI Pain Level: 5 Notes: Patient is a 27-year-old male no significant past medical history who presents to the ED complaining of dental pain #13 over the last week, but increasing pain over the last couple days. Patient states that he may have a cavity in that tooth, but does not have the money to see dentist. Patient states that he has been using [id number] meds with minimal relief. He is eating and drinking without difficulties, but does have decreased p.o. intake. He has had some trouble sleeping because of the pain. He is urinating normally. No other concerns or complaints. No noted swelling or discharge. Denies any headache, fever, head injury, neck pain, drooling, hoarseness, URI, sore throat, chest pain, palpitations, syncope, cough, shortness of breath, wheeze, dyspnea, abdominal pain, nausea/vomiting/diarrhea, urinary retention, dysuria, hematuria , or rash. - ROS Systems Reviewed and Negative: Yes All other systems reviewed and negative - CARDIOVASCULAR Cardiovascular: DENIES: Chest pain - GASTROINTESTINAL Gastrointestinal: DENIES: Abdominal Pain - REPRODUCTIVE Reproductive: DENIES: : Past Medical History - Social History Smoking Status: Current Every Day Smoker Chew tobacco use (# tins/day): No Frequency of alcohol use: None Drug Abuse: Marijuana Family History: Reviewed & Not Pertinent Patient has suicidal ideation: No Patient has homicidal ideation: No Neurological Medical History: Reports: Hx Migraine Renal/ Medical History: Denies: Hx Peritoneal Dialysis Musculoskeletal Medical History: Reports Hx Musculoskeletal Deformity, Reports Hx Musculoskeletal Trauma Skin Medical History: Reports Hx MRSA - unsure if he was positive for MRSA in the past Past Surgical History: Reports: Hx Adenoidectomy, Hx Oral Surgery - [place] teeth , Hx Tonsillectomy - Immunizations Immunizations up to date: No Hx Diphtheria, Pertussis, Tetanus Vaccination: Yes Vertical Provider Document - CONSTITUTIONAL Agree With Documented VS: No - HR 88 during exam. Notes: PHYSICAL EXAMINATION: GENERAL: Well-appearing, well-nourished and in no acute distress. HEAD: Atraumatic, normocephalic. EYES: Pupils equal round and reactive to light, extraocular movements intact, sclera anicteric, conjunctiva are normal. ENT: EAC clear b/l. TM's intact b/l without erythema, fluid, or perforation. Nares patent and without discharge. oropharynx clear without exudates. No tonsilar hypertrophy or erythema. Moist mucous membranes. No sinus tenderness. Uvula midline. No palatine shift. No tongue protrusion. No respiratory compromise. Mouth: Poor dentition. + mild gingivitis. No obvious abscess or discharge noted. No facial swelling. + tenderness to tooth #13. NECK: Normal range of motion, supple without lymphadenopathy. No rigidity/ meningismus. LUNGS: Breath sounds clear to auscultation bilaterally and equal. No wheezes rales or rhonchi. HEART: Regular rate and rhythm without murmurs, rubs, gallops. NEUROLOGICAL: Cranial nerves grossly intact. Normal speech, normal gait. PSYCH: Normal mood, normal affect. SKIN: Warm, Dry, normal turgor, no rashes or lesions noted. - INFECTION CONTROL TRAVEL OUTSIDE OF THE [place] IN LAST 30 DAYS: No Course - Re-evaluation Re-evalutation: 10/01/17 08:05 Patient is an afebrile, well-hydrated, 27-year-old male who presents to the ED with dental pain, suspect nerve root etiology versus infection. Vitals are acceptable. PE is otherwise unremarkable. No I&D, labs, or imaging warranted at this time based on H&P. Local dental block performed with sensorcaine successfully w/o any complications. pt tolerated proc well. Viscous lidocaine dispensed today. I will send him home with a prescription for penicillin. Low suspicion for any meningitis, sepsis, peritonsillar/pharyngeal abscess, respiratory compromise, Zachary's, temporal arteritis, or other emergent systemic condition at this time. Patient is aware this condition can change from initial presentation and he needs to monitor symptoms closely. Conservative measures otherwise for symptoms. Call to schedule an appointment with a dentist for further evaluation and management. Recheck with your PCM this week as well. Return to the ED with any worsening/concerning symptoms otherwise as reviewed in discharge. Patient is in agreement. - Vital Signs Vital signs: Temp Pulse Resp BP Pulse Ox 98.1 F 125 H 14 110/61 100 10/01/17 07:38 10/01/17 07:38 10/01/17 07:38 10/01/17 07:38 10/01/17 07:38 Procedures - Additional Procedures Dental block Time performed: 08:00 Additional Procedures: Other - Dental block performed local to #13 with Sensorcaine (2.5cc), using a 5 cc syringe and 1/2 inch 25-gauge needle. Patient tolerated procedure well without any complications. minimal to no blood loss Discharge - Discharge Clinical Impression: Pain, dental Condition: Stable Disposition: HOME, SELF-CARE Instructions: Penicillin V K ([facility]), Toothache ([facility]), [facility] Additional Instructions: [place] and floss twice daily Maintain fluid intake Take antibiotics as directed Mouthwash, salt water gargles, peroxide rinse as needed Tylenol/ibuprofen as needed Recheck with PCM this week Call today/tomorrow and schedule an appointment with your dentist for further evaluation Return to the ED with any worsening symptoms and/or development of fever, headache, facial swelling, swelling of lips/tongue/throat, trouble swallowing, drooling, hoarseness, neck pain/stiffness, chest pain, palpitations, syncope, shortness of breath, trouble breathing, abdominal pain, n/v/d, numbness/tingling , or other worsening symptoms that are concerning to you. Prescriptions: Penicillin V Potassium [Penicillin Vk 250 mg Tablet] 500 mg PO BID #40 tablet Forms: Smoking Cessation Education Referrals: [facility] [Provider Group] - Follow up in 3-5 days
== END 2017-10-01 08:11 | disposition home or self-care (01) ==
LOC: ER 07:35
DX: K08.89 Other specified disorders of teeth and supporting structures (principal); K05.10 Chronic gingivitis, plaque induced; F17.200 Nicotine dependence, unspecified, uncomplicated; F12.10 Cannabis abuse, uncomplicated
CPT/HCPCS: 99282; 64400; J3490 ×2

== ENCOUNTER 2017-10-20 11:30 | Emergency (ER) | payer SELFPAY ==
[2017-10-20 11:42] VITALS: BP 120/70
[2017-10-20] MEDS ORDERED: IBUPROFEN 800 MG TABLET PO ONE (11:55)
[2017-10-20] MEDS ORDERED: OXYCODONE-ACETAMINOPHEN 5-325 MG TABLET PO ONE (11:55)
--- NOTE | 2017-10-20 12:00 | ER Document Report ---
HPI - HPI Patient complains to provider of: Dental pain Onset: Other - 2 weeks Onset/Duration: Persistent Quality of pain: Achy Pain Level: 4 Context: Patient presents complaining of dental pain for the past 2 weeks. Patient states he was here recently for the same complaint and placed on an antibiotic. Patient is still taking the penicillin that he was prescribed. Patient without any fever or facial swelling. Patient states he has not followed up with a dentist due to lack of insurance. Associated Symptoms: Other - Dental pain. denies: Fever Exacerbated by: Denies Relieved by: Denies Similar symptoms previously: Yes Recently seen / treated by doctor: Yes - ROS ROS below otherwise negative: Yes Systems Reviewed and Negative: Yes All other systems reviewed and negative - CONSTITUTIONAL Constitutional: REPORTS: Chills. DENIES: Fever - EENT EENT: DENIES: Sore Throat, Ear Pain, Eye problems Notes: Dental pain - NEURO Neurology: DENIES: Headache - GASTROINTESTINAL Gastrointestinal: DENIES: Nausea, Patient vomiting - DERM Skin Color: Normal Skin Problems: None Past Medical History - General Information source: Patient - Social History Smoking Status: Current Every Day Smoker Chew tobacco use (# tins/day): No Smoking Education Provided: Yes Frequency of alcohol use: None Drug Abuse: Marijuana Occupation: None Lives with: Family Family History: Reviewed & Not Pertinent Patient has suicidal ideation: No Patient has homicidal ideation: No Neurological Medical History: Reports: Hx Migraine Renal/ Medical History: Denies: Hx Peritoneal Dialysis Musculoskeletal Medical History: Reports Hx Musculoskeletal Deformity, Reports Hx Musculoskeletal Trauma Skin Medical History: Reports Hx MRSA - unsure if he was positive for MRSA in the past Past Surgical History: Reports: Hx Adenoidectomy, Hx Oral Surgery - [place] teeth , Hx Tonsillectomy - Immunizations Immunizations up to date: No Hx Diphtheria, Pertussis, Tetanus Vaccination: Yes Vertical Provider Document - CONSTITUTIONAL Agree With Documented VS: Yes Exam Limitations: No Limitations General Appearance: WD/WN, No Apparent Distress - INFECTION CONTROL TRAVEL OUTSIDE OF THE [place] IN LAST 30 DAYS: No - HEENT HEENT: Atraumatic, Normocephalic Mouth Diagram: 1 - Dental decay, fracture, tenderness, no gingival abscess, no trismus 2 - Tenderness, dental decay, no trismus, no sublingual or submental swelling - NECK Neck: Normal Inspection, Supple. negative: Lymphadenopathy-Left, Lymphadenopathy-Right - RESPIRATORY Respiratory: Breath Sounds Normal, No Respiratory Distress - CARDIOVASCULAR Cardiovascular: Regular Rate, Regular Rhythm - BACK Back: Normal Inspection - MUSCULOSKELETAL/EXTREMETIES Musculoskeletal/Extremeties: MAEW - NEURO Level of Consciousness: Awake, Alert, Appropriate Motor/Sensory: No Motor Deficit - DERM Integumentary: Warm, Dry Course - Vital Signs Vital signs: Temp Pulse Resp BP Pulse Ox 98.6 F 98 20 120/70 100 10/20/17 11:41 10/20/17 11:41 10/20/17 11:41 10/20/17 11:41 10/20/17 11:41 Discharge - Discharge Clinical Impression: Toothache Condition: Stable Disposition: HOME, SELF-CARE Instructions: Dentist, Toothache ([facility]) Additional Instructions: Return immediately for any new or worsening symptoms Followup with your primary care provider, call tomorrow to make a followup appointment Follow-up with a dental care provider for further evaluation Take Tylenol [id number] with your ibuprofen for pain relief Prescriptions: Ibuprofen [Motrin 600 Mg Tablet] 600 mg PO Q6H PRN #20 tablet PRN Reason: for pain Forms: Smoking Cessation Education Referrals: [facility] [Provider Group] - Follow up as needed
[2017-10-20] MEDS ORDERED: OXYCODONE-ACETAMINOPHEN 5-325 MG TABLET ONE (12:11)
[2017-10-20] MEDS ORDERED: IBUPROFEN 800 MG TABLET ONE (12:11)
== END 2017-10-20 12:18 | disposition home or self-care (01) ==
LOC: ER 11:30
DX: K02.9 Dental caries, unspecified (principal); K08.89 Other specified disorders of teeth and supporting structures; F17.200 Nicotine dependence, unspecified, uncomplicated
CPT/HCPCS: 99283

== ENCOUNTER 2017-10-26 17:30 | Emergency (ER) | payer SELFPAY ==
[2017-10-26] MEDS ORDERED: KETOROLAC TROMETHAMINE 60 MG/2 ML SDV IM ONE (18:04)
--- NOTE | 2017-10-26 18:04 | ER Document Report ---
ED GI/ - General Chief Complaint: Scrotal Pain, Acute Onset Stated Complaint: TESTICULAR PAIN Time Seen by Provider: 10/26/17 18:01 Information source: Patient Notes: Chief complaint: Testicular pain History of complain:( obtained from----patient) 27 years old male claims that child jumped on his testicles yesterday and since then having severe pain acting like being in extreme pain. No fever chills or other constitutional symptoms Onset: Sudden Duration: Since yesterday severe Severity: Quality: Sharp Context: As above Exacerbating factor and relieving factors: None REVIEW OF SYSTEMS: CONSTITUTIONAL : Denies fever, chills, or sweats. Denies recent illness. EENT: Denies eye, ear, throat, or mouth pain or symptoms. Denies nasal or sinus congestion or discharge. Denies throat, tongue, or mouth swelling or difficulty swallowing. CARDIOVASCULAR: Denies chest pain. Denies palpitations or racing or irregular heart beat. Denies ankle edema. RESPIRATORY: Denies cough, cold, or chest congestion. Denies shortness of breath, difficulty breathing, or wheezing. GASTROINTESTINAL: Denies distention. Denies nausea, vomiting, or diarrhea. Denies blood in vomitus, stools, or per rectum. Denies black, tarry stools. Denies constipation. GENITOURINARY: Denies difficulty urinating, painful urination, burning, frequency, blood in urine, or discharge. FEMALE GENITOURINARY: Denies vaginal bleeding, heavy or abnormal periods, irregular periods. Denies vaginal discharge or odor. MUSCULOSKELETAL: Denies back or neck pain or stiffness. Denies joint pain or swelling. SKIN: Denies rash, lesions or sores. HEMATOLOGIC : Denies easy bruising or bleeding. LYMPHATIC: Denies swollen, enlarged glands. NEUROLOGICAL: Denies confusion or altered mental status. Denies passing out or loss of consciousness. Denies dizziness or lightheadedness. Denies headache. Denies weakness or paralysis or loss of use of either side. Denies problems with gait or speech. Denies sensory loss, numbness, or tingling. Denies seizures. PSYCHIATRIC: Denies anxiety or stress. Denies depression, suicidal ideation, or homicidal ideation. ALL OTHER SYSTEMS REVIEWED AND NEGATIVE. PHYSICAL EXAMINATION: GENERAL: Well-appearing, well-nourished and in no acute distress. HEAD: Atraumatic, normocephalic. EYES: Pupils equal round and reactive to light, extraocular movements intact, conjunctiva are normal. ENT: Nares patent, oropharynx clear without exudates. Moist mucous membranes. NECK: Normal range of motion, supple without lymphadenopathy LUNGS: Breath sounds clear to auscultation bilaterally and equal. No wheezes rales or rhonchi. HEART: Regular rate and rhythm without murmurs ABDOMEN: Soft, nontender, nondistended abdomen. No guarding, no rebound. No masses appreciated. Examination of the genital-scrotal sac appears perfectly normal, no erythema or swelling noted. Left testicle is descended compared to the right, appears normal in size there were no swelling at all. No tenderness on palpation. No scrotal hernia noted. Examination of the groin-there is no inguinal hernia or tenderness noted. Examination of genitals-deferred Musculoskeletal: Normal range of motion, no pitting or edema. No cyanosis. NEUROLOGICAL: Cranial nerves grossly intact. Normal speech, normal gait. Normal sensory, motor exams PSYCH: Normal mood, normal affect. SKIN: Warm, Dry, normal turgor, no rashes or lesions noted. Dictation was performed using [employer] voice recognition software TRAVEL OUTSIDE OF THE [place] IN LAST 30 DAYS: No - HPI Notes: 10/26/17 18:04 Dictated - Related Data Allergies/Adverse Reactions: codeine [From Tylenol-Codeine #3] Allergy (Verified 10/26/17 17:31) Hives tramadol Adverse Reaction (Verified 10/26/17 17:31) Vomiting Past Medical History - Social History Smoking Status: Current Every Day Smoker Frequency of alcohol use: None Drug Abuse: Marijuana Lives with: Family Family History: Reviewed & Not Pertinent Patient has suicidal ideation: No Patient has homicidal ideation: No Neurological Medical History: Reports: Hx Migraine Renal/ Medical History: Denies: Hx Peritoneal Dialysis Musculoskeletal Medical History: Reports Hx Musculoskeletal Deformity, Reports Hx Musculoskeletal Trauma Skin Medical History: Reports Hx MRSA - unsure if he was positive for MRSA in the past Past Surgical History: Reports: Hx Adenoidectomy, Hx Oral Surgery - [place] teeth , Hx Tonsillectomy - Immunizations Immunizations up to date: No Hx Diphtheria, Pertussis, Tetanus Vaccination: Yes Review of Systems - Review of Systems Notes: Dictated Physical Exam - Vital signs Vitals: Temp Pulse Resp BP Pulse Ox 99.4 F 109 H 18 130/84 H 99 10/26/17 17:40 10/26/17 17:40 10/26/17 17:40 10/26/17 17:40 10/26/17 17:40 - Notes Notes: Dictated Course - Vital Signs Vital signs: Temp Pulse Resp BP Pulse Ox 99.4 F 109 H 18 130/84 H 99 10/26/17 17:40 10/26/17 17:40 10/26/17 17:40 10/26/17 17:40 10/26/17 17:40 - Laboratory Laboratory results interpreted by me: 10/26/17 18:05 Urine Protein 30 H Urine Ascorbic Acid 40 H - Diagnostic Test Radiology reviewed: Reports reviewed - Testicular ultrasound shows normal according to radiologist Discharge - Discharge Clinical Impression: Testicular pain, Methadone dependence Condition: Fair Disposition: HOME, SELF-CARE Instructions: Testicular Pain ([facility]) Prescriptions: Ibuprofen 600 mg PO TID #30 tablet
[2017-10-26 18:27] LABS: APPEARANCE,URINE SLIGHTLY-CLOUDY; BILIRUBIN,URINE NEGATIVE (NEGATIVE); COLOR,URINE YELLOW; GLUCOSE, URINE NEGATIVE (NEGATIVE); KETONES,URINE NEGATIVE (NEGATIVE); LEUKOCYTE ESTERASE,URINE NEGATIVE (NEGATIVE); NITRITE,URINE NEGATIVE (NEGATIVE); PROTEIN,URINE 30 mg/dL (NEGATIVE); URINE SPECIFIC GRAVITY 1.029; UROBILINOGEN,URINE NEGATIVE mg/dL (<2.0)
[2017-10-26 18:41] LABS: URINE AMPHETAMINES SCREEN UNCONFIRMED POSITIVE; URINE BARBITURATES SCREEN NEGATIVE; URINE BENZODIAZEPINES SCREEN NEGATIVE; URINE COCAINE SCREEN NEGATIVE; URINE MARIJUANA (THC) SCREEN UNCONFIRMED POSITIVE; URINE METHADONE SCREEN UNCONFIRMED POSITIVE; URINE PHENCYCLIDINE SCREEN NEGATIVE
--- NOTE | 2017-10-26 19:10 | RADIOLOGY REPORT (SQ) ---
EXAM DESCRIPTION: U/S SCROTUM W/DOPPLER COMPLETED DATE/TIME: 10/26/2017 6:40 pm REASON FOR STUDY: Testicular injury COMPARISON: None. TECHNIQUE: Static and realtime yusuf scale imaging of the scrotum and testes. Selected color Doppler and spectral images recorded to document blood flow. LIMITATIONS: None. FINDINGS: RIGHT: TESTICLE: Normal size. Normal echotexture. Normal blood flow. No mass. EPIDIDYMIS: Normal. HYDROCELE OR VARICOCELE: No hydrocele. Small right 4 mm varicocele. HERNIA OR EXTRA-TESTICULAR MASS: No. OTHER: No other significant finding. LEFT: TESTICLE: Normal size. Normal echotexture. Normal blood flow. No mass. EPIDIDYMIS: Normal. HYDROCELE OR VARICOCELE: No. HERNIA OR EXTRA-TESTICULAR MASS: No. OTHER: No other significant finding. IMPRESSION: NO EVIDENCE OF TESTICULAR MASS OR TORSION.Small right 4 mm varicocele. TECHNICAL DOCUMENTATION: JOB ID: [id number] [place]-72 2010 [employer]- All Rights Reserved Reading location - IP/workstation name: [email or web address]
[2017-10-26 19:47] VITALS: BP 126/78
== END 2017-10-26 19:40 | disposition home or self-care (01) ==
LOC: ER 17:30
DX: N50.82 Scrotal pain (principal); F11.20 Opioid dependence, uncomplicated; F17.200 Nicotine dependence, unspecified, uncomplicated; Z88.6 Allergy status to analgesic agent
CPT/HCPCS: 99284; 96372; 81001; 80307; 76870; 93976; J1885

== ENCOUNTER 2017-12-05 09:17 | Emergency (ER) | payer SELFPAY ==
[2017-12-05] MEDS ORDERED: KETOROLAC TROMETHAMINE INJ/PF 30 MG/1 ML SDV IV ONE (09:33)
[2017-12-05] MEDS ORDERED: PROCHLORPERAZINE EDISYLATE INJ 10 MG/2 ML VIAL IV ONE (09:33)
[2017-12-05] MEDS ORDERED: ONDANSETRON HCL INJ/PF 4 MG/2 ML SDV IV ONE (09:33)
[2017-12-05] MEDS ORDERED: NORMAL SALINE 1000 ML 1,000 ML IV ONE (09:33)
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
[2017-12-05 10:22] LABS: ANION GAP 9 (5-19); BLOOD UREA NITROGEN 14 mg/dL (7-20); CALCIUM 9.7 mg/dL (8.4-10.2); CARBON DIOXIDE 30 mmol/L (22-30); CHLORIDE 103 mmol/L (98-107); GLUCOSE 94 mg/dL (75-110); POTASSIUM 4.3 mmol/L (3.6-5.0); SODIUM 141.6 mmol/L (137-145)
[2017-12-05 11:05] VITALS: BP 114/64
== END 2017-12-05 11:05 | disposition home or self-care (01) ==
LOC: ER 09:17
DX: G44.209 Tension-type headache, unspecified, not intractable (principal); R11.2 Nausea with vomiting, unspecified; F17.200 Nicotine dependence, unspecified, uncomplicated; F12.10 Cannabis abuse, uncomplicated; Z77.120 Contact with and (suspected) exposure to mold (toxic); Z88.5 Allergy status to narcotic agent
CPT/HCPCS: 99284; 96361; 96374; 96375; 36415; 80048; J1885; J0780; J2405; J7030

== ENCOUNTER 2018-02-16 09:00 | Emergency (ER) | payer OTHER ==
--- NOTE | 2018-02-16 09:17 | ER Document Report ---
ED General - General Chief Complaint: Foreign Body in Eye Stated Complaint: EYE ISSUE Time Seen by Provider: 02/16/18 09:16 Notes: Patient is a 27-year-old male that presents to the emergency department for chief complaint of right eye pain. Patient states that 2 days ago he was at work, and it broke a CD in half and he thinks a piece of it might have hit his right eye, because he had redness and pain afterwards, yesterday the pain was much worse, than it is today, but his eye was still red, and painful today so he wanted to come to the emergency department to have this evaluated. He states he had some drainage associated as well. Denies any any fevers, chills, or significant change in his vision, mild photophobia associated with this as well. He currently rates the pain as a 3 out of 10 describes as an aching sensation in the right eye. Past Medical History: Denies chronic medical conditions Past Surgical History: Tonsillectomy Social History: Admits to smoking cigarettes daily, denies alcohol use, admits to rare marijuana use. Family History: Reviewed and noncontributory for presenting illness Allergies: Reviewed, see documented allergy list. REVIEW OF SYSTEMS: Other than noted above, the 12 point review of systems was reviewed with the patient and were negative, all pertinent findings are included in the HPI. PHYSICAL EXAMINATION: Vital signs reviewed, nursing noted reviewed. GENERAL: Well-appearing, well-nourished and in no acute distress. HEAD: Atraumatic, normocephalic. EYES: Eyes appear normal, extraocular movements intact, sclera anicteric, right conjunctival injection, patient was examined under slit lamp, with floor seen dye, there is no evidence of a current corneal abrasion, or ulcer, no anterior flare noted either. ENT: nares patent, oropharynx clear without exudates. Moist mucous membranes. NECK: Normal range of motion, supple without lymphadenopathy LUNGS: Breath sounds clear to auscultation bilaterally and equal. No wheezes rales or rhonchi. HEART: Regular rate and rhythm without murmurs EXTREMITIES: Nontender, good range of motion, no pitting or edema. NEUROLOGICAL: No focal neurological deficits. Moves all extremities spontaneously Motor and sensory grossly intact on exam. PSYCH: Normal mood, normal affect. SKIN: Warm, Dry, normal turgor, no rashes or lesions noted on exposed skin TRAVEL OUTSIDE OF THE [place] IN LAST 30 DAYS: No - Related Data Allergies/Adverse Reactions: codeine [From Tylenol-Codeine #3] Allergy (Verified 12/05/17 09:30) Hives tramadol Adverse Reaction (Verified 12/05/17 09:30) Vomiting Past Medical History - Social History Smoking Status: Current Every Day Smoker Chew tobacco use (# tins/day): No Frequency of alcohol use: None Drug Abuse: Marijuana Family History: Reviewed & Not Pertinent Patient has suicidal ideation: No Patient has homicidal ideation: No Neurological Medical History: Reports: Hx Migraine Renal/ Medical History: Denies: Hx Peritoneal Dialysis Musculoskeletal Medical History: Reports Hx Musculoskeletal Deformity, Reports Hx Musculoskeletal Trauma Skin Medical History: Reports Hx MRSA - unsure if he was positive for MRSA in the past Past Surgical History: Reports: Hx Adenoidectomy, Hx Oral Surgery - [place] teeth, Hx Tonsillectomy - Immunizations Immunizations up to date: No Hx Diphtheria, Pertussis, Tetanus Vaccination: Yes Physical Exam - Vital signs Vitals: Temp Pulse Resp BP Pulse Ox 97.8 F 101 H 14 126/61 H 98 02/16/18 09:03 02/16/18 09:03 02/16/18 09:03 02/16/18 09:03 02/16/18 09:03 Course - Re-evaluation Re-evalutation: Patient seen and examined vital signs reviewed. Patient was evaluated and treated as appropriate for the patient's presenting symptoms and complaint, with consideration of any critical or life threatening conditions that may be associated with their obtained history and exam as noted above. Patient was treated with tetracaine, and examined under slit lamp, no noted corneal abrasion, or ulcer. The patient was re-evaluated and was stable Evaluation was most consistent with corneal njury, likely abrasion that occurred in his healing, will provide ciprofloxacin eyedrops and advised follow-up with ophthalmology. Plan of care was discussed with the patient at this point, after careful consideration I feel that that patient can be discharged from the emergency department, the patient was educated treatments and reasons to return to the emergency department based on their presumed diagnosis as noted above, they were advised to followup with a primary care physician in 2-3 days. Patient was agreeable to plan of care. *Note is created using voice recognition software and may contain spelling, syntax or grammatical errors. - Vital Signs Vital signs: Temp Pulse Resp BP Pulse Ox 97.8 F 101 H 14 126/61 H 98 02/16/18 09:03 02/16/18 09:03 02/16/18 09:03 02/16/18 09:03 02/16/18 09:03 Discharge - Discharge Clinical Impression: Corneal abrasion Qualifiers: Encounter type: initial encounter Laterality: right Qualified Code(s): S05.01XA - Injury of conjunctiva and corneal abrasion without foreign body, right eye, initial encounter Condition: Stable Disposition: HOME, SELF-CARE Instructions: Corneal Abrasion ([facility]) Additional Instructions: Please use the antibiotic drops as prescribed, and follow-up with ophthalmology, call for an appointment, if you have worsening pain, your vision changes or worsens, do not hesitate to return to the emergency department. Prescriptions: Ciprofloxacin HCl [Ciloxan] 1 drp OD Q4H 5 Days #1 bottle Forms: Return to Work Referrals: JOSÉ MIGUEL MICHEL DO [ACTIVE STAFF] - Follow up tomorrow
[2018-02-16] MEDS ORDERED: TETRACAINE HCL 0.5% OPH SOLN 4 ML ONE (09:23)
[2018-02-16] MEDS ORDERED: TETRACAINE HCL 0.5% OPH SOLN 4 ML OD ONE (09:24)
[2018-02-16 09:56] VITALS: BP 101/64
== END 2018-02-16 09:55 | disposition home or self-care (01) ==
LOC: ER 09:00
DX: S05.01XA Injury of conjunctiva and corneal abrasion without foreign body, right eye, initial encounter (principal); X58.XXXA Exposure to other specified factors, initial encounter; Y99.0 Civilian activity done for income or pay; F17.210 Nicotine dependence, cigarettes, uncomplicated; Z88.6 Allergy status to analgesic agent; Z86.14 Personal history of Methicillin resistant Staphylococcus aureus infection
CPT/HCPCS: 99283

== ENCOUNTER 2018-04-06 06:18 | Emergency (ER) | payer SELFPAY ==
[2018-04-06] MEDS ORDERED: ACETAMINOPHEN 325 MG TABLET PO ONE (07:52)
[2018-04-06] MEDS ORDERED: IPRATROPIUM/ALBUTEROL 0.5-2.5 MG/3 ML AMPUL NEB ONE (07:53)
--- NOTE | 2018-04-06 07:59 | ER Document Report ---
ED General - General Chief Complaint: Productive Cough Stated Complaint: CHEST CONGESTION Time Seen by Provider: 04/06/18 07:39 Mode of Arrival: Ambulatory Information source: Patient TRAVEL OUTSIDE OF THE [place] IN LAST 30 DAYS: No - HPI Patient complains to provider of: Fever, cough, shortness of breath Onset: Other - 6 days ago Onset/Duration: Gradual Quality of pain: Achy Severity: Moderate Associated symptoms: Body/muscle aches, Chest pain, Chills, Productive cough, Fever, Nausea. denies: Diarrhea, Vomiting Exacerbated by: Denies Relieved by: Denies Similar symptoms previously: Yes - History of pneumonia last year - Related Data Allergies/Adverse Reactions: codeine [From Tylenol-Codeine #3] Allergy (Verified 04/06/18 06:19) Hives tramadol Adverse Reaction (Verified 04/06/18 06:19) Vomiting Past Medical History - Social History Smoking Status: Current Every Day Smoker Chew tobacco use (# tins/day): No Frequency of alcohol use: None Drug Abuse: None Family History: Reviewed & Not Pertinent Patient has suicidal ideation: No Patient has homicidal ideation: No Pulmonary Medical History: Reports: Hx Pneumonia Neurological Medical History: Reports: Hx Migraine Renal/ Medical History: Denies: Hx Peritoneal Dialysis Musculoskeletal Medical History: Reports Hx Musculoskeletal Deformity, Reports Hx Musculoskeletal Trauma Skin Medical History: Reports Hx MRSA - unsure if he was positive for MRSA in the past Past Surgical History: Reports: Hx Adenoidectomy, Hx Oral Surgery - [place] teeth, Hx Tonsillectomy - Immunizations Immunizations up to date: No Hx Diphtheria, Pertussis, Tetanus Vaccination: Yes Review of Systems - Review of Systems Constitutional: See HPI EENT: Ear pain, Nose congestion, Sinus pressure Cardiovascular: Chest pain Respiratory: Cough Gastrointestinal: Nausea Genitourinary: No symptoms reported Musculoskeletal: Back pain - Chronic in nature Skin: No symptoms reported Hematologic/Lymphatic: No symptoms reported Neurological/Psychological: No symptoms reported Physical Exam - Vital signs Vitals: Temp Pulse Resp BP Pulse Ox 100.0 F 116 H 18 121/72 95 04/06/18 06:23 04/06/18 06:23 04/06/18 06:23 04/06/18 06:23 04/06/18 06:23 - Notes Notes: Patient is awake, alert, no acute distress. - General General appearance: Appears well, Alert - HEENT Head: Normocephalic, Atraumatic Eyes: Normal Conjunctiva: Normal Pupils: PERRL Tympanic membrane: Normal Sinus: No: Tenderness Pharynx: Erythema - Respiratory Respiratory status: No respiratory distress Chest status: Tender - I Breath sounds: Wheezing - Diffuse wheezing throughout all lung cuevas - Cardiovascular Rhythm: Regular - Abdominal Inspection: Normal Bowel sounds: Normal Tenderness: Nontender - Extremities General lower extremity: Normal inspection, Nontender Shoulder: Nontender Calf: Nontender - Neurological Neuro grossly intact: Yes - Skin Skin Temperature: Warm Skin Moisture: Dry Course - Re-evaluation Re-evalutation: 04/06/18 09:11 Patient seen and reevaluated. Feeling improved. Continued wheezing but mild. Vital signs revealed a heart rate in the 90s, oxygenating well. I discussed his diagnosis of influenza A. I also discussed the possibility of a superimposed bacterial pneumonia, and treatment with antibiotics. He is amenable to this plan. He does not have prescription coverage, so I will treat him with doxycycline. Discussed the need for an albuterol inhaler as well, in addition to smoking cessation. The patient voiced understanding and will follow up with his mother's primary care physician next week. He is to return with any worsening. - Vital Signs Vital signs: Temp Pulse Resp BP Pulse Ox 100.0 F 116 H 18 121/72 95 04/06/18 06:23 04/06/18 06:23 04/06/18 06:23 04/06/18 06:23 04/06/18 06:23 Discharge - Discharge Clinical Impression: Influenza A, Pneumonia Condition: Good Disposition: HOME, SELF-CARE Instructions: Acetaminophen, Influenza ([facility]) [id number] Additional Instructions: Try to quit smoking. Take all of the antibiotic as prescribed until gone. Use albuterol inhaler as directed. Follow-up next week. If you develop continued fever, increased shortness of breath, or any other new or concerning symptoms, return to the emergency department for reevaluation. Prescriptions: Albuterol Sulfate [Proair HFA Inhalation Aerosol 8.5 gm MDI] 2 puff IH Q4H PRN #1 mdi PRN Reason: Doxycycline Hyclate 100 mg PO BID #14 capsule Forms: Smoking Cessation Education, Return to Work
[2018-04-06 08:48] LABS: A TYPE INFLUENZA AG POSITIVE (NEGATIVE); B INFLUENZA AG NEGATIVE (NEGATIVE)
--- NOTE | 2018-04-06 09:04 | RADIOLOGY REPORT (SQ) ---
EXAM DESCRIPTION: CHEST 2 VIEWS COMPLETED DATE/TIME: 04/06/2018 8:17 am REASON FOR STUDY: cough COMPARISON: 01/02/2017 EXAM PARAMETERS: NUMBER OF VIEWS: two views TECHNIQUE: Digital Frontal and Lateral radiographic views of the chest acquired. RADIATION DOSE: NA LIMITATIONS: none FINDINGS: LUNGS AND PLEURA: Prominent interstitial markings in the perihilar regions and right midd le lobe, suggest infiltrates. No pneumothorax or pleural effusion. Mild hyperinflation of the lungs unchanged finding. MEDIASTINUM AND HILAR STRUCTURES: No masses or contour abnormalities. HEART AND VASCULAR STRUCTURES: Heart normal size. No evidence for failure. BONES: No acute findings. HARDWARE: None in the chest. OTHER: No other significant finding. IMPRESSION: 1. Prominent bilateral perihilar interstitial markings and also prominent markings in t he right middle lobe suggest infiltrates. COMMENT: 1. The results of this examination were discussed with the emergency department provider o n 04/06/2018 at 08:57 hours. TECHNICAL DOCUMENTATION: JOB ID: [id number] [employer]- All Rights Reserved Reading location - IP/workstation name: [email or web address]
[2018-04-06 09:42] VITALS: BP 111/70
== END 2018-04-06 09:30 | disposition home or self-care (01) ==
LOC: ER 06:18
DX: J11.1 Influenza due to unidentified influenza virus with other respiratory manifestations (principal); J18.9 Pneumonia, unspecified organism; R06.02 Shortness of breath; M79.10 Myalgia, unspecified site; R50.9 Fever, unspecified; Z88.6 Allergy status to analgesic agent; F17.200 Nicotine dependence, unspecified, uncomplicated; Z86.14 Personal history of Methicillin resistant Staphylococcus aureus infection
CPT/HCPCS: 94640; 99283; 87804; 71046; J7620

== ENCOUNTER 2018-04-20 09:17 | Emergency (ER) | payer SELFPAY ==
[2018-04-20 09:22] VITALS: BP 107/72
[2018-04-20] MEDS ORDERED: ONDANSETRON ODT 4 MG TAB (6 TAB/ER DISP) PO PRN (10:29)
--- NOTE | 2018-04-20 10:33 | ER Document Report ---
ED General - General Chief Complaint: Nausea/Vomiting Stated Complaint: VOMITTING Time Seen by Provider: 04/20/18 10:23 Primary Care Provider: [facility] [Provider Group] - Follow up as needed ISAIAH VERDUZCO MD [ACTIVE STAFF] - Follow up in 3-5 days (or your primary care. ) Notes: Patient is a 27-year-old male that presents to the emergency department for chief complaint of nausea and fatigue. Patient states that he was recently seen and diagnosed with pneumonia and influenza, was started on doxycycline, which he finished the course of that. He states he did feel better from a breathing fernando dpoint, his cough has since resolved, but is been having a constant runny nose, yesterday had nausea and some episodes of vomiting. Overall he is felt fatigued, denies feeling lightheaded or having any syncopal episodes. He states that his son has had similar symptoms. He denies having any pain at this time. No other complaints. Past Medical History: Denies chronic medical conditions Past Surgical History: Tonsillectomy Social History: Admits to smoking cigarettes, denies alcohol use, goes to the methadone clinic. Family History: Reviewed and noncontributory for presenting illness Allergies: Reviewed, see documented allergy list. REVIEW OF SYSTEMS: Other than noted above, the 12 point review of systems was reviewed with the patient and were negative, all pertinent findings are included in the HPI. PHYSICAL EXAMINATION: Vital signs reviewed, nursing noted reviewed. GENERAL: Well-appearing, well-nourished and in no acute distress. HEAD: Atraumatic, normocephalic. EYES: Eyes appear normal, extraocular movements intact, sclera anicteric, conjunctiva are normal. ENT: nares patent, oropharynx clear without exudates. Moist mucous membranes. NECK: Normal range of motion, supple without lymphadenopathy LUNGS: Breath sounds clear to auscultation bilaterally and equal. No wheezes rales or rhonchi. HEART: Regular rate and rhythm without murmurs ABDOMEN: Soft, nontender, normoactive bowel sounds. No rebound, guarding, or rigidity. No masses appreciated. EXTREMITIES: Nontender, good range of motion, no pitting or edema. NEUROLOGICAL: No focal neurological deficits. Moves all extremities spontaneously Motor and sensory grossly intact on exam. PSYCH: Normal mood, normal affect. SKIN: Warm, Dry, normal turgor, no rashes or lesions noted on exposed skin TRAVEL OUTSIDE OF THE [place] IN LAST 30 DAYS: No - Related Data Allergies/Adverse Reactions: codeine [From Tylenol-Codeine #3] Allergy (Verified 04/20/18 09:20) Hives tramadol Adverse Reaction (Verified 04/20/18 09:20) Vomiting Past Medical History - Social History Smoking Status: Current Every Day Smoker Family History: Reviewed & Not Pertinent Pulmonary Medical History: Reports: Hx Pneumonia Neurological Medical History: Reports: Hx Migraine Renal/ Medical History: Denies: Hx Peritoneal Dialysis Musculoskeletal Medical History: Reports Hx Musculoskeletal Deformity, Reports Hx Musculoskeletal Trauma Skin Medical History: Reports Hx MRSA - unsure if he was positive for MRSA in the past Past Surgical History: Reports: Hx Adenoidectomy, Hx Oral Surgery - [place] teeth, Hx Tonsillectomy - Immunizations Immunizations up to date: No Hx Diphtheria, Pertussis, Tetanus Vaccination: Yes Physical Exam - Vital signs Vitals: Temp Pulse Resp BP Pulse Ox 98.6 F 77 14 107/72 96 04/20/18 09:20 04/20/18 09:20 04/20/18 09:20 04/20/18 09:20 04/20/18 09:20 Course - Re-evaluation Re-evalutation: Patient seen and examined vital signs reviewed. Patient was evaluated and treated as appropriate for the patient's presenting symptoms and complaint, with consideration of any critical or life threatening conditions that may be associated with their obtained history and exam as noted above. Patient was treated with Zofran 4 mg ODT dispense pack The patient was re-evaluated and was stable Evaluation was most consistent with nausea and vomiting, fatigue, URI, patient given prescription for Zofran as well as Flonase to help with his rhinorrhea. Plan of care was discussed with the patient at this point, after careful consideration I feel that that patient can be discharged from the emergency department, the patient was educated treatments and reasons to return to the emergency department based on their presumed diagnosis as noted above, they were advised to followup with a primary care physician in 2-3 days. Patient was agreeable to plan of care. *Note is created using voice recognition software and may contain spelling, syntax or grammatical errors. - Vital Signs Vital signs: Temp Pulse Resp BP Pulse Ox 98.6 F 77 14 107/72 96 04/20/18 09:20 04/20/18 09:20 04/20/18 09:20 04/20/18 09:20 04/20/18 09:20 Discharge - Discharge Clinical Impression: Nausea & vomiting Qualifiers: Vomiting type: unspecified Vomiting Intractability: non-intractable Qualified Code(s): R11.2 - Nausea with vomiting, unspecified URI (upper respiratory infection) Qualifiers: URI type: unspecified URI Qualified Code(s): J06.9 - Acute upper respiratory infection, unspecified Condition: Stable Disposition: HOME, SELF-CARE Instructions: Vomiting ([facility]) Additional Instructions: Please take the prescribed medications as directed, you can take the Zofran every 4-8 hours as needed for nausea and vomiting. Please use the Flonase twice daily for the first week, and then once daily afterwards to help with your runny nose. Prescriptions: Fluticasone Propionate [Flonase Nasal [place] 50 Mcg/[place] 16 gm] 1 spray NASL Q12 #1 inhaler Ondansetron [Zofran Odt 4 mg Tablet] 1 tab PO Q8H PRN #10 tab.rapdis PRN Reason: For Nausea/Vomiting Forms: Return to Work Referrals: ISAIAH VERDUZCO MD [ACTIVE STAFF] - Follow up in 3-5 days (or your primary care. ) [facility] [Provider Group] - Follow up as needed
== END 2018-04-20 10:37 | disposition home or self-care (01) ==
LOC: ER 09:17
DX: J06.9 Acute upper respiratory infection, unspecified (principal); R11.2 Nausea with vomiting, unspecified; R53.83 Other fatigue; F17.210 Nicotine dependence, cigarettes, uncomplicated; Z79.899 Other long term (current) drug therapy
CPT/HCPCS: 99283

== ENCOUNTER 2018-11-21 09:09 | Emergency (ER) | payer SELFPAY ==
[2018-11-21 09:17] VITALS: BP 119/76
[2018-11-21] MEDS ORDERED: KETOROLAC TROMETHAMINE 60 MG/2 ML SDV IM ONE (10:07)
[2018-11-21] MEDS ORDERED: DIPHENHYDRAMINE HCL 50 MG CAPSULE PO ONE (10:07)
[2018-11-21] MEDS ORDERED: METOCLOPRAMIDE HCL INJ/PF 10 MG/2 ML SDV IM ONE (10:07)
[2018-11-21] MEDS ORDERED: DEXAMETHASONE SOD PHOS INJ 10 MG/1 ML VIAL IM ONE (10:07)
--- NOTE | 2018-11-21 10:25 | ER Document Report ---
HPI - HPI Patient complains to provider of: headache Time Seen by Provider: 11/21/18 09:58 Pain Level: 3 Context: Healthy 20-year-old male presents the emergency department with chief complaint of headache for 1 week. He states he was playing around with his son and thinks that that may have instigated it. Patient states that the pain is severe and thinks that it is localized to his occiput but gets so severe that it is global. Patient denies any confusion or slurred speech, denies any blurred vision, denies any limb weakness, denies facial droop. Patient states that he has had headaches in the past but none were ever this severe. Patient has tried to take acetaminophen for it and nothing else. - CONSTITUTIONAL Constitutional: DENIES: Fever, Chills - NEURO Neurology: REPORTS: Headache - REPRODUCTIVE Reproductive: DENIES: : Past Medical History - Social History Smoking Status: Unknown if Ever Smoked Chew tobacco use (# tins/day): No Frequency of alcohol use: None Drug Abuse: None Family History: Reviewed & Not Pertinent Patient has suicidal ideation: No Patient has homicidal ideation: No Pulmonary Medical History: Reports: Hx Pneumonia Neurological Medical History: Reports: Hx Migraine Renal/ Medical History: Denies: Hx Peritoneal Dialysis Musculoskeletal Medical History: Reports Hx Musculoskeletal Deformity, Reports Hx Musculoskeletal Trauma Skin Medical History: Reports Hx MRSA - unsure if he was positive for MRSA in the past Past Surgical History: Reports: Hx Adenoidectomy, Hx Oral Surgery - [place] teeth, Hx Tonsillectomy - Immunizations Immunizations up to date: No Hx Diphtheria, Pertussis, Tetanus Vaccination: Yes Vertical Provider Document - CONSTITUTIONAL Notes: PHYSICAL EXAMINATION: Reviewed vital signs and charting by RN GENERAL: Alert, interacts well. No acute distress. HEAD: Normocephalic, atraumatic. EYES: Pupils equal and round. Extraocular movements intact. ENT: Oral mucosa moist, tongue midline. NECK: Full range of motion. Trachea midline. EXTREMITIES: Moves all 4 extremities spontaneously. No edema, No cyanosis. NEURO: A &O X 3, normal speech, normal gailt, PERRL, EOMI, SILT, follows commands in all 4 extremities, no gross abnormalities of cranial nerves, no focal neuro deficits, no pronator drift, [id number] testing normal, rapid alternating hand movements normal, [id number] normal, anesthesiologist and critical care strength 5/5 bilateral, 5/5 strength in both proximal and distal upper and lower extremities PSYCH: Normal affect, normal mood. SKIN: Warm, dry, normal turgor. No rashes or lesions noted. - INFECTION CONTROL TRAVEL OUTSIDE OF THE [place] IN LAST 30 DAYS: No Course - Re-evaluation Re-evalutation: 11/21/18 10:27 Presentation of a headache that appears to be most consistent with tension versus migrainous type headache. Headache was not maximal in onset, patient has no focal neurologic deficits, no nuchal rigidity, vital signs within normal limits, and patient is overall well in appearance. Based on clinical history and examination I do not suspect an acute subarachnoid hemorrhage, dural venous sinus thrombosis, acute meningitis, or intercranial mass. Given my low clinical suspicion for any acute life-threatening etiology, I do not feel advanced neuro imaging or laboratory testing is indicated at this time. Will proceed with headache cocktail and reassess. - Vital Signs Vital signs: Temp Pulse Resp BP Pulse Ox 97.4 F 87 16 119/76 100 11/21/18 09:15 11/21/18 09:15 11/21/18 09:15 11/21/18 09:15 11/21/18 09:15 Discharge - Discharge Clinical Impression: Headache Qualifiers: Headache type: unspecified Headache chronicity pattern: acute headache Intractability: intractable Qualified Code(s): R51 - Headache Condition: Good Disposition: HOME, SELF-CARE Additional Instructions: You have been seen in the Emergency Department (ED) for a headache. Please use Tylenol (acetaminophen) 1000 mg every 6 hours or Motrin (ibuprofen) 600 mg every 6 hours as needed for symptoms. Call your doctor or return to the ED if you have a worsening headache, sudden and severe headache, confusion, slurred speech, facial droop, weakness or numbness in any arm or leg, extreme fatigue, or other symptoms that concern you. Forms: Return to Work
[2018-11-21] MEDS ORDERED: MORPHINE SULFATE 10 MG/ML INJ ONE (10:27)
== END 2018-11-21 10:42 | disposition home or self-care (01) ==
LOC: ER 09:09
DX: R51 Headache (principal)
CPT/HCPCS: 99283; 96372; J1885; J2765; J1100

== ENCOUNTER 2019-01-09 09:50 | Emergency (ER) | payer SELFPAY ==
[2019-01-09] MEDS ORDERED: KETOROLAC TROMETHAMINE INJ/PF 30 MG/1 ML SDV IM ONE (10:30)
--- NOTE | 2019-01-09 10:42 | ER Document Report ---
HPI - HPI Time Seen by Provider: 01/09/19 10:14 Pain Level: 2 Context: Patient is a 28-year-old male who presents to the emergency department with a chief complaint of sore throat. Patient reports he has developed a sore throat over the past 2 days which is continued to get worse. Patient reports that his son was diagnosed with strep throat last week. Patient reports he has had a tonsillectomy is unsure if he is able to even get strep throat. Patient denies rash. Patient reports he does smoke 1 pack of cigarettes per day. Patient reports runny nose and right ear pain. Patient denies nausea, vomiting or diarrhea. Patient denies fever. Patient reports at times he will have a productive cough with green sputum. - EENT EENT: REPORTS: Sore Throat - REPRODUCTIVE Reproductive: DENIES: : Past Medical History - General Information source: Patient - Social History Smoking Status: Current Every Day Smoker Chew tobacco use (# tins/day): No Frequency of alcohol use: None Drug Abuse: None Lives with: Family Family History: Reviewed & Not Pertinent Patient has suicidal ideation: No Patient has homicidal ideation: No - Past Medical History Cardiac Medical History: Reports: None Pulmonary Medical History: Reports: Hx Pneumonia EENT Medical History: Reports: None Neurological Medical History: Reports: Hx Migraine Endocrine Medical History: Reports: None Renal/ Medical History: Reports: None. Denies: Hx Peritoneal Dialysis Malignancy Medical History: Reports None GI Medical History: Reports: None Musculoskeletal Medical History: Reports Hx Musculoskeletal Deformity, Reports Hx Musculoskeletal Trauma Skin Medical History: Reports Hx MRSA - unsure if he was positive for MRSA in the past Psychiatric Medical History: Reports: None Traumatic Medical History: Reports: None Infectious Medical History: Reports: None Past Surgical History: Reports: Hx Adenoidectomy, Hx Oral Surgery - [place] teeth, Hx Tonsillectomy - Immunizations Immunizations up to date: No Hx Diphtheria, Pertussis, Tetanus Vaccination: Yes Vertical Provider Document - CONSTITUTIONAL Agree With Documented VS: Yes Exam Limitations: No Limitations General Appearance: No Apparent Distress - INFECTION CONTROL TRAVEL OUTSIDE OF THE [place] IN LAST 30 DAYS: No - HEENT HEENT: Atraumatic, Normal ENT Exam, Normocephalic, PERRLA, Pharyngeal Erythema Notes: Patient has had surgical removal of bilateral tonsils. - NECK Neck: Lymphadenopathy-Right - RESPIRATORY Respiratory: Breath Sounds Normal, No Respiratory Distress - CARDIOVASCULAR Cardiovascular: Regular Rate, Regular Rhythm - GI/ABDOMEN Gastrointestinal: Abdomen Soft, Abdomen Non-Tender - MUSCULOSKELETAL/EXTREMETIES Musculoskeletal/Extremeties: FROM - NEURO Level of Consciousness: Awake, Alert, Appropriate - DERM Integumentary: Warm, Dry, No Rash Course - Re-evaluation Re-evalutation: 01/09/19 10:41 We will obtain a strep test. We will give a dose of IM Toradol to treat the patient's sore throat. Patient is nontoxic-appearing. 01/09/19 12:08 I did discuss treatment options of strep with the patient. Patient reports he would like to receive the one-time injection here in the emergency department. I did inform the patient use Tylenol and ibuprofen as needed for pain. Patient is not tachycardic, febrile or hypotensive. - Vital Signs Vital signs: Temp Pulse Resp BP Pulse Ox 98.0 F 99 16 113/73 99 01/09/19 10:01 01/09/19 10:01 01/09/19 10:01 01/09/19 10:01 01/09/19 10:01 - Laboratory Laboratory results interpreted by me: 01/09/19 11:46 Laboratory 01/09/19 10:34 Group A Strep Rapid POSITIVE Discharge - Discharge Clinical Impression: Strep throat, Sore throat Condition: Stable Disposition: HOME, SELF-CARE Additional Instructions: *Today you are seen the emergency department for sore throat. Your strep test was positive. You have been given a one-time injection of Bicillin. This is an antibiotic. You do not require a prescription for antibiotics. You should start to feel better in the next 24 to 48 hours. Please use Tylenol and ibuprofen as needed for pain and fever. Please return to the emergency department if your symptoms worsen. STREP THROAT: Your sore throat is due to the streptococcus germ (strep throat). Strep throat usually makes you feel quite ill with fever and aches, headache, swollen sore throat, and tender bumps under the angles of the jaw. Strep throat requires antibiotic treatment. Although the sore throat may go away by itself, complications such as rheumatic fever, kidney disease, or throat abscess can occur. We usually prescribe antibiotics by mouth. Be sure to take the medicine until it's gone. If you stop early, the strep may come back. If you are vomiting, are severely ill, or can't remember to take pills, we can give you an antibiotic shot. Take acetaminophen or ibuprofen for pain and fever. Sip frequent clear liquids, or use popsicles or ice chips. Anesthetic sprays or lozenges may help. Make sure the air in the room is not too dry. Avoid using decongestants or antihistamines. Call the doctor if there is no improvement in three days, or if you have difficulty breathing, increasing throat pain, high fever, rash, or frequent vomiting. FOLLOW-UP CARE: If you have been referred to a physician for follow-up care, call the physicians office for an appointment as you were instructed or within the next two days. If you experience worsening or a significant change in your symptoms, notify the physician immediately or return to the Emergency Department at any time for re-evaluation. Forms: Smoking Cessation Education, Return to Work
[2019-01-09] MEDS ORDERED: PENICILLIN G BENZATHINE 1.2 MILLION UNIT/2 ML DISP.SYRIN IM ONE (11:46)
[2019-01-09 11:47] VITALS: BP 109/65
== END 2019-01-09 12:15 | disposition home or self-care (01) ==
LOC: ER 09:50
DX: J02.0 Streptococcal pharyngitis (principal); F17.210 Nicotine dependence, cigarettes, uncomplicated
CPT/HCPCS: 87880; J1885; J0561

== ENCOUNTER 2019-02-22 09:47 | Emergency (ER) | payer SELFPAY ==
--- NOTE | 2019-02-22 11:31 | ER Document Report ---
HPI - HPI Time Seen by Provider: 02/22/19 11:25 Notes: Otherwise healthy 20-year-old male presents emergency department chief complaint of flulike symptoms that started 4 days ago. Patient reports cough, congestion, body aches and fatigue. He reports that he has had flu and pneumonia in the past. - REPRODUCTIVE Reproductive: DENIES: : Past Medical History - General Information source: Patient - Social History Smoking Status: Never Smoker Frequency of alcohol use: None Drug Abuse: None Family History: Reviewed & Not Pertinent Pulmonary Medical History: Reports: Hx Pneumonia Neurological Medical History: Reports: Hx Migraine Renal/ Medical History: Denies: Hx Peritoneal Dialysis Musculoskeletal Medical History: Reports Hx Musculoskeletal Deformity, Reports Hx Musculoskeletal Trauma Skin Medical History: Reports Hx MRSA - unsure if he was positive for MRSA in the past Past Surgical History: Reports: Hx Adenoidectomy, Hx Oral Surgery - [place] teeth, Hx Tonsillectomy - Immunizations Immunizations up to date: No Hx Diphtheria, Pertussis, Tetanus Vaccination: Yes Vertical Provider Document - CONSTITUTIONAL Notes: PHYSICAL EXAMINATION: GENERAL: Well-appearing, well-nourished and in no acute distress. HEAD: Atraumatic, normocephalic. EYES: Pupils equal round and reactive to light, extraocular movements intact, sclera anicteric, conjunctiva are normal. ENT: Nares patent, oropharynx clear without exudates. Moist mucous membranes. NECK: Normal range of motion, supple without lymphadenopathy LUNGS: Breath sounds clear to auscultation bilaterally and equal. No wheezes rales or rhonchi. HEART: Regular rate and rhythm without murmurs ABDOMEN: Soft, nontender, nondistended abdomen. No guarding, no rebound. No masses appreciated. Musculoskeletal: Normal range of motion, no pitting or edema. No cyanosis. NEUROLOGICAL: Cranial nerves grossly intact. Normal speech, normal gait. Normal sensory, motor exams PSYCH: Normal mood, normal affect. SKIN: Warm, Dry, normal turgor, no rashes or lesions noted. - INFECTION CONTROL TRAVEL OUTSIDE OF THE [place] IN LAST 30 DAYS: No Course - Re-evaluation Re-evalutation: Patient appears well, nontoxic, vital signs within normal limits. Influenza was negative, chest x-ray unremarkable. Likely viral upper respiratory illness. Patient will be discharged home in stable condition at this time. Patient verbalizes understanding and agreement with this plan. - Vital Signs Vital signs: Temp Pulse Resp BP Pulse Ox 98.8 F 100 16 141/80 H 93 02/22/19 10:13 02/22/19 10:13 02/22/19 10:13 02/22/19 10:13 02/22/19 10:13 Discharge - Discharge Clinical Impression: Viral upper respiratory illness Condition: Stable Disposition: HOME, SELF-CARE Additional Instructions: Your chest x-ray was negative for pneumonia. Your symptoms are most likely due to a viral infection it should resolve over the next 7-14 days. You should take [id number] guanfacine per bottle instructions to help thin the mucus. For nasal congestion: I would recommend that you get [id number] oxymetazoline also known is afrin. Use only per bottle instructions and be sure to never use this for more than 3 days if you can develop severe rebound congestion. Take the steroids as prescribed. You may also use tylenol or ibuprofen as needed for aches and thorat discomfort. Please be sure to drink plenty of fluids and get rest. Return to the emergency department he began having difficulty breathing, chest pain, persistent vomiting, or any other symptoms that are concerning to you. Prescriptions: Prednisone [Deltasone 20 mg Tablet] 3 tab PO DAILY 5 Days #15 tablet Forms: Return to Work
[2019-02-22 12:12] LABS: A TYPE INFLUENZA AG NEGATIVE (NEGATIVE); B INFLUENZA AG NEGATIVE (NEGATIVE)
--- NOTE | 2019-02-22 12:35 | RADIOLOGY REPORT (SQ) ---
EXAM DESCRIPTION: CHEST 2 VIEWS COMPLETED DATE/TIME: 02/22/2019 12:27 pm REASON FOR STUDY: cough/fever COMPARISON: 04/06/2018 EXAM PARAMETERS: NUMBER OF VIEWS: two views TECHNIQUE: Digital Frontal and Lateral radiographic views of the chest acquired. RADIATION DOSE: NA LIMITATIONS: none FINDINGS: LUNGS AND PLEURA: No opacities, masses or pneumothorax. No pleural effusion. MEDIASTINUM AND HILAR STRUCTURES: No masses or contour abnormalities. HEART AND VASCULAR STRUCTURES: Heart normal size. No evidence for failure. BONES: No acute findings. HARDWARE: None in the chest. OTHER: No other significant finding. IMPRESSION: No focal airspace disease or other evidence of acute intrathoracic process. TECHNICAL DOCUMENTATION: JOB ID: [id number] [employer]- All Rights Reserved Reading location - IP/workstation name: [email or web address]
[2019-02-22 17:15] VITALS: BP 135/78
== END 2019-02-22 12:45 | disposition home or self-care (01) ==
LOC: ER 09:47
DX: J06.9 Acute upper respiratory infection, unspecified (principal); M79.10 Myalgia, unspecified site; R53.83 Other fatigue; Z86.14 Personal history of Methicillin resistant Staphylococcus aureus infection
CPT/HCPCS: 71046; 87804; 99283

== ENCOUNTER 2019-04-26 11:21 | Emergency (ER) | payer OTHER ==
[2019-04-26 11:31] VITALS: BP 125/66
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
== END 2019-04-26 12:09 | disposition home or self-care (01) ==
LOC: ER 11:21
DX: Z04.1 Encounter for examination and observation following transport accident (principal)
CPT/HCPCS: 99283